=== PATIENT | male | born 1955 | race Caucasian/White ===

== ENCOUNTER 2016-03-22 | Emergency (ER) | payer BC | END 2016-03-22 03:10 | disposition home or self-care (01) ==

== ENCOUNTER 2016-05-28 06:14 | Day surgery (SDC) | payer BC ==
[2016-05-28] MEDS ORDERED: LACTATED RINGERS 1,000 ML IV ONE (07:00)
[2016-05-28] MEDS ORDERED: fentaNYL 250 MCG/5 ML VIAL IVP ONE (08:00)
[2016-05-28] MEDS ORDERED: MIDAZOLAM 2 MG/2 ML VIAL IVP ONE (08:00)
== END 2016-05-28 06:15 | disposition home or self-care (01) ==
PROC: 0DBL8ZX Excision of Transverse Colon, Via Natural or Artificial Opening Endoscopic, Diagnostic (ICD-10-PCS; 2016-05-28)
PROC: 0DBL8ZX Excision of Transverse Colon, Via Natural or Artificial Opening Endoscopic, Diagnostic (ICD-10-PCS; 2016-05-28)
PROC: 0DBN8ZX Excision of Sigmoid Colon, Via Natural or Artificial Opening Endoscopic, Diagnostic (ICD-10-PCS; principal; 2016-05-28 07:30)
DX: Z12.11 Encounter for screening for malignant neoplasm of colon (principal); D12.3 Benign neoplasm of transverse colon; D12.5 Benign neoplasm of sigmoid colon; D12.2 Benign neoplasm of ascending colon; I10 Essential (primary) hypertension
CPT/HCPCS: 45380; 45385; J3010; J7120

== ENCOUNTER 2019-09-22 10:50 | Day surgery (SDC) | payer BC ==
[2019-09-22] MEDS ORDERED: PROPOFOL 200 MG/20 ML VIAL IVP ONE (10:51)
[2019-09-22] MEDS ORDERED: fentaNYL 250 MCG/5 ML VIAL IVP ONE (10:51)
[2019-09-22] MEDS ORDERED: MIDAZOLAM 2 MG/2 ML VIAL IVP ONE (10:51)
[2019-09-22] MEDS ORDERED: LACTATED RINGERS 1,000 ML IV ONE ×2 (11:06→13:31)
[2019-09-22] MEDS ORDERED: LIDO GARGLE 30 ML BOTTLE ONE (12:36)
[2019-09-22] MEDS ORDERED: LIDO GARGLE 30 ML BOTTLE PO ONE (12:45)
[2019-09-22] MEDS ORDERED: BENZOCAINE/TETRACAINE/BUTAMBEN 20 GM TOP ONE (12:46)
--- NOTE | 2019-09-22 14:39 | ANESTHESIA ---
Pre-Anesthesia VS, & Labs - Diagnosis History of colon polyps, GERD - Procedure colonoscopy Vital Signs: Temp Pulse Resp BP Pulse Ox 36.4 C L 65 14 108/53 L 95 09/22/19 14:33 09/22/19 14:33 09/22/19 14:33 09/22/19 14:33 09/22/19 14:33 Height 5 ft 10 in Weight (kg) 94.8 kg - NPO >8 hours Home Medications and Allergies Home Medications: Ambulatory Orders FLUoxetine [PROzac] 20 mg PO DAILY 09/21/19 amLODIPine [Norvasc] 10 mg PO DAILY 10/05/14 Bisoprolol/Hydrochlorothiazide [Bisoprolol-Hctz 10-6.25 mg Tab] 1 each PO DAILY 03/22/16 FLUoxetine [PROzac] 20 mg PO DAILY 09/21/19 Allergies/Adverse Reactions: Allergies Allergy/AdvReac Type Severity Reaction Status Date / Time CHUY Inhibitors Allergy Unknown Verified 09/22/19 11:20 sulfite Allergy Rash Verified 09/22/19 11:20 Anes History & Medical History - Medical History Cardiovascular: reports: Hypertension Pulmonary: reports: None Gastrointestinal: reports: GERD, Colon polyps, Diverticulitis Urinary: reports: Benign prostate hypertrophy Musculoskeletal: reports: None, Osteoarthritis Endocrine/Autoimmune: reports: None Skin: reports: None Smoking Status: Never smoker - Surgical History General: Colonoscopy Exam Other Exam Comments:: Exam deferred. Patient sedated prior to my arrival Plan Anesthesia Type: MAC (Failed nurse sedation after 12mg Versed and 250mcg fentanyl. History obtained from chart and RN. Unable to obtain anesthesia consent, but consent inferred.) Consent for Procedure(s) Verified and Reviewed: Yes Code Status: Attempt Resuscitation ASA classification: 2-Mild systemic disease Is this case an emergency?: No
[2019-09-22 15:18] VITALS: BP 126/70
== END 2019-09-22 10:51 | disposition home or self-care (01) ==
LOC: SDS 10:50
PROVIDERS: ATTEND Surgery
PROC: 0DB38ZX Excision of Lower Esophagus, Via Natural or Artificial Opening Endoscopic, Diagnostic (ICD-10-PCS; 2019-09-22)
PROC: 0DB68ZX Excision of Stomach, Via Natural or Artificial Opening Endoscopic, Diagnostic (ICD-10-PCS; 2019-09-22)
PROC: 0DBK8ZX Excision of Ascending Colon, Via Natural or Artificial Opening Endoscopic, Diagnostic (ICD-10-PCS; principal; 2019-09-22 12:00)
PROC: 0DBL8ZX Excision of Transverse Colon, Via Natural or Artificial Opening Endoscopic, Diagnostic (ICD-10-PCS; 2019-09-22 12:00)
DX: Z12.11 Encounter for screening for malignant neoplasm of colon (principal); D12.2 Benign neoplasm of ascending colon; D12.3 Benign neoplasm of transverse colon; K21.0 Gastro-esophageal reflux disease with esophagitis; K22.10 Ulcer of esophagus without bleeding; K31.7 Polyp of stomach and duodenum; K44.9 Diaphragmatic hernia without obstruction or gangrene; Z79.899 Other long term (current) drug therapy; Z80.0 Family history of malignant neoplasm of digestive organs; Z86.010 Personal history of colon polyps
CPT/HCPCS: 43239; 45380; 45385; A9270; J3010; J7120

== ENCOUNTER 2019-10-11 10:45 | Outpatient (CLI) | payer BC ==
[2019-10-11 11:09] LABS: BASOPHILS % (AUTO) 0.6 %; EOSINOPHILS # (AUTO) 0.1 10^3/uL (0.0-0.7); EOSINOPHILS % (AUTO) 1.7 %; HGB - HEMOGLOBIN 13.7 g/dL (14.0-18.0); LYMPHOCYTES # (AUTO) 1.5 10^3/uL (1.5-3.5); LYMPHOCYTES % (AUTO) 20.6 %; MEAN CORPUSCULAR HEMOGLOBIN 31.3 pg (27.0-31.0); MEAN CORPUSCULAR HGB CONC 34.3 g/dL (32.0-36.0); MEAN CORPUSCULAR VOLUME 91.1 fL (80.0-94.0); MEAN PLATELET VOLUME 9.8 fL (7.4-11.4); MONOCYTES # (AUTO) 0.6 10^3/uL (0.0-1.0); MONOCYTES % (AUTO) 8.4 %; NEUTROPHILS % (AUTO) 68.3 %; PLT - PLATELET COUNT 286 10^3/uL (130-450); RED BLOOD COUNT 4.38 10^6/uL (4.70-6.10); RED CELL DISTRIBUTION WIDTH 12.6 % (12.0-15.0); WHITE BLOOD COUNT 7.3 x10^3/uL (4.8-10.8)
[2019-10-11 11:28] LABS: ALKALINE PHOSPHATASE 60 IU/L (42-121); ALT ALANINE AMINOTRANSFERASE 23 IU/L (10-60); AST ASPARTATE AMINOTRANSFERASE 24 IU/L (10-42); BILIRUBIN,TOTAL 0.7 mg/dL (0.2-1.0); BUN - BLOOD UREA NITROGEN 35 mg/dL (6-20); CALCIUM 9.5 mg/dL (8.5-10.3); CARBON DIOXIDE - CO2 29 mmol/L (21-32); CHLORIDE 99 mmol/L (101-111); CHOLESTEROL 186 mg/dL; CREATININE 1.1 mg/dL (0.6-1.2); GLUCOSE 95 mg/dL (70-100); HDL CHOLESTEROL 37 mg/dL; LDL CHOLESTEROL,CALCULATED 119 mg/dL; LDL/HDL RATIO 3.2 (<3.6); SODIUM 140 mmol/L (135-145); TOTAL PROTEIN 8.1 g/dL (6.7-8.2); VLDL CHOLESTEROL 30 mg/dL
[2019-10-11 11:44] LABS: PSA FREE 0.36 ng/mL (0.16-2.81)
[2019-10-11 11:45] LABS: PSA TOTAL 1.92 ng/mL (0.000-2.000)
[2019-10-12 15:43] LABS: HEPATITIS C ANTIBODY NON-REACTIVE (NON-REACTIVE)
== END 2019-10-11 10:46 | disposition home or self-care (01) ==
LOC: LAB 10:45
PROVIDERS: ATTEND Internal Medicine
DX: Z79.899 Other long term (current) drug therapy (principal); Z13.6 Encounter for screening for cardiovascular disorders; I10 Essential (primary) hypertension; F32.9 Major depressive disorder, single episode, unspecified; R35.0 Frequency of micturition; Z11.59 Encounter for screening for other viral diseases
CPT/HCPCS: 36415; 80053; 80061; 83721; 84153; 84154; 85025; 86803

== ENCOUNTER 2019-12-04 17:14 | Outpatient (CLI) | payer BC ==
--- NOTE | 2019-12-05 09:35 | XRAY Report ---
PROCEDURE: Foot 3 View LT INDICATIONS: PAIN IN LEFT FOOT TECHNIQUE: 3 views of the foot were acquired. COMPARISON: None FINDINGS: Bones: No fractures or dislocations. No suspicious bony lesions. Soft tissues: No tibiotalar joint effusion. Achilles tendon appears normal. IMPRESSION: No trauma found. There is arthritic change at the inner phalangeal joints across the foot, but no ero sive arthritis is suspected. Reviewed by: Valdez Herr MD on 12/05/2019 9:34 AM PDT Approved by: Valdez Herr MD on 12/05/2019 9:34 AM PDT Station ID: [id number]
== END 2019-12-04 17:15 | disposition home or self-care (01) ==
LOC: DI.S 17:14
PROVIDERS: ATTEND Nurse Practitioner Family
DX: M19.072 Primary osteoarthritis, left ankle and foot (principal)

== ENCOUNTER 2020-01-17 08:09 | Outpatient (CLI) | payer BC ==
--- NOTE | 2020-01-17 13:36 | MRI Report ---
PROCEDURE: Foot LT W/O INDICATIONS: LT FOOT PAIN TECHNIQUE: Noncontrast sagittal T1 spin echo and T2 fast spin echo with fat saturation, long-axis T1 spin echo a nd T2 fast spin echo with fat saturation, short-axis proton density fast spin echo and T2 fast spin e cho with fat saturation through the forefoot. COMPARISON: None. FINDINGS: Image quality: Excellent. Bones and joints: No bone marrow contusions or fractures. No evidence of metatarsal stress reaction or stress fractures. There is mild midfoot degeneration with a few scattered foci of subchondral amara ma along the tarsometatarsal joints. The sesamoid bones appear in expected positions, without interna l edema. There is mild first metatarsophalangeal joint degeneration. No intraosseous lesions. Soft tissues: A cutaneous marker is demonstrated along the dorsal aspect of the forefoot overlying t he distal second and third metatarsal shafts. No discrete subjacent mass or fluid collection is ident ified. The visualized plantar foot muscles demonstrate normal signal and bulk. Visualized flexor and extensor tendons appear intact, without tenosynovitis. There is a small amount of intermetatarsal b ursal fluid in the first and third metatarsal interspaces as well as trace fluid in the second and fo urth interspaces. Within the plantar aspect of the forefoot, there is a small subcutaneous T2 hyperin tense oval lesion measuring approximately 0.4 x 0.4 x 0.8 cm between the second and third proximal ph alanges. IMPRESSION: 1. No fractures or bone contusions. No evidence of stress reaction or stress fractures. 2. No definite abnormality identified subjacent to the cutaneous marker in the area of clinical armando rn. 3. Small subcutaneous cystic appearing lesion within the plantar soft tissues between the second and third proximal phalanges. The findings are nonspecific and the differential includes a small ganglion cyst, fat necrosis or other nonspecific inflammatory process, or foreign body reaction among other e tiologies. Differential also includes a small neoplasm but this is considered less likely. Recommenda tion correlation with clinical exam. 4. Small amount of intermetatarsal bursal fluid within the metatarsal interspaces as described. 5. Mild midfoot degeneration and mild degeneration at the first metatarsophalangeal joint. Reviewed by: Marques Fischer MD on 01/17/2020 1:35 PM PST Approved by: Marques Fischer MD on 01/17/2020 1:35 PM PST Station ID: [id number]
== END 2020-01-17 08:10 | disposition home or self-care (01) ==
LOC: DI 08:09
PROVIDERS: ATTEND Nurse Practitioner Family
DX: R93.6 Abnormal findings on diagnostic imaging of limbs (principal); R93.89 Abnormal findings on diagnostic imaging of other specified body structures

== ENCOUNTER 2020-03-03 09:00 | Emergency (ER) | payer BC ==
[2020-03-03] MEDS ORDERED: KETOROLAC 30 MG/ML VIAL IM STA (09:27)
[2020-03-03] MEDS ORDERED: methocarbamoL 500 MG TABLET PO STA ×2 (09:27→09:35)
--- NOTE | 2020-03-03 10:02 | XRAY Report ---
PROCEDURE: Hip w/Pelvis 2-3V LT INDICATIONS: hip pain TECHNIQUE: AP pelvis with lateral view(s) of the left hip(s). COMPARISON: None. FINDINGS: Bones: No fractures or dislocations. Pelvic ring appears intact. No suspicious bony lesions. There is moderate superior joint space narrowing seen involving both hips. There is associated remode ling change, with subchondral sclerosis and osteophyte formation. Note is made of age-appropriate degenerative change of the lower lumbar spine. Soft tissues: The visualized bowel gas pattern is normal. No suspicious soft tissue calcifications. IMPRESSION: Moderate degenerative change can be seen of both hips, without an acute abnormality seen by plain alvina m. Reviewed by: Kobe Trejo MD on 03/03/2020 9:01 AM [place] Approved by: Kobe Trejo MD on 03/03/2020 9:01 AM [facility] [[email or web address]] Station ID: [id number]
--- NOTE | 2020-03-03 10:37 | ED Physician Documentation ---
PD HPI LOWER EXT INJURY - Stated complaint Stated Complaint: L LEG PX - Chief complaint Chief Complaint: Ext Problem - History obtained from History obtained from: Patient - Additional information Additional information: 64-year-old man presents with left posterior thigh pain for the past day, worse with walking, moderate severity, worse with range of motion, radiating to the posterior hip. Denies traumatic injury, however he has been lifting a lot of firewood recently and has been more active than usual. Denies fevers, prior injury, weakness or numbness in the toes. Review of Systems Skin: denies: Lesions, Abrasion (s) Musculoskeletal: reports: Extremity pain, Joint pain. denies: Extremity swelling Neurologic: denies: Focal weakness, Numbness PD PAST MEDICAL HISTORY - Past Medical History Past Medical History: Yes Cardiovascular: Hypertension Respiratory: None Endocrine/Autoimmune: None GI: GERD, Colon polyps, Diverticulitis : Benign prostate hypertrophy HEENT: Chronic hearing loss Psych: None Musculoskeletal: None, Osteoarthritis Derm: None - Past Surgical History Past Surgical History: Yes General: Colonoscopy - Present Medications Home Medications: Ambulatory Orders Medication Instructions Recorded Confirmed amLODIPine [Norvasc] 10 mg PO DAILY 10/05/14 03/03/20 Bisoprolol/Hydrochlorothiazide 1 each PO DAILY 03/22/16 03/03/20 [Bisoprolol-Hctz 10-6.25 mg Tab] FLUoxetine [PROzac] 20 mg PO DAILY 09/21/19 03/03/20 Methocarbamol [Robaxin-750] 750 mg PO Q8H PRN 2 Days #6 tablet 03/03/20 - Allergies Allergies/Adverse Reactions: Allergies Allergy/AdvReac Type Severity Reaction Status Date / Time CHUY Inhibitors Allergy Unknown Verified 03/03/20 09:09 sulfite Allergy Rash Verified 03/03/20 09:09 - Social History Does the pt smoke?: No Smoking Status: Never smoker Does the pt drink ETOH?: Yes Does the pt have substance abuse?: No - Immunizations Immunizations are current?: Yes - POLST Patient has POLST: No PD ED PE NORMAL - Vitals Vital signs reviewed: Yes - General General: Alert and oriented X 3 - HEENT HEENT: Atraumatic, PERRL, EOMI - Extremities Extremities: No deformity, No tenderness to palpate, Other (mildly tender with flexion at the hip. ttp of posterior proximal thigh in muscular distribution) - Neuro Neuro: Other (Sensory, neuro, vascular intact bilateral lower extremities) Results - Vitals Vitals: Vital Signs - 24 hr 03/03/20 03/03/20 09:06 09:25 Temperature 36.0 C L Heart Rate 69 69 Respiratory 16 16 Rate Blood Pressure 142/89 H 146/98 H O2 Saturation 97 96 Oxygen O2 Source Room air PD MEDICAL DECISION MAKING - ED course Complexity details: re-evaluated patient ED course: 64-year-old man presented with muscle strain to left posterior hip. X-rays show mild osteoarthritis. Discussed with patient. He has had improvement with Toradol and Robaxin. We will send a couple prescriptions of Robaxin and he will take ibuprofen outpatient. Strict return precautions given. Patient will follow up with his primary doctor. Departure - Departure Disposition: 01 Home, Self Care Clinical Impression: Muscle strain Condition: Good Instructions: ED RICE, Strain Sprain Contusion Ch Prescriptions: Methocarbamol [Robaxin-750] 750 mg PO Q8H PRN 2 Days #6 tablet PRN Reason: Pain Comments: You have been seen in the emergency department for muscle strain. Return to the ED for any new or worsening symptoms. Follow-up with your primary doctor. Robaxin can make you drowsy so you should exercise caution when operating heavy machinery or driving.
[2020-03-03 10:53] VITALS: BP 144/89
== END 2020-03-03 10:57 | disposition home or self-care (01) ==
LOC: ED 09:00
DX: S76.012A Strain of muscle, fascia and tendon of left hip, initial encounter (principal); X50.0XXA Overexertion from strenuous movement or load, initial encounter; Y93.89 Activity, other specified; Y92.009 Unspecified place in unspecified non-institutional (private) residence as the place of occurrence of the external cause; M16.0 Bilateral primary osteoarthritis of hip; I10 Essential (primary) hypertension
CPT/HCPCS: 73502; 96372; 99283; A9270

== ENCOUNTER 2021-04-30 08:41 | Outpatient (CLI) | payer MEDICARE, BC | END 2021-04-30 08:42 | disposition home or self-care (01) | LOC: DI 08:41 | PROVIDERS: ATTEND Internal Medicine | DX: R01.1 Cardiac murmur, unspecified (principal); I51.7 Cardiomegaly; I35.0 Nonrheumatic aortic (valve) stenosis | CPT/HCPCS: 93306 ==

== ENCOUNTER 2021-08-22 08:00 | Outpatient (CLI) | payer MEDICARE, BC ==
--- NOTE | 2021-08-22 14:20 | XRAY Report ---
PROCEDURE: Wrist 3 View RT INDICATIONS: RIGHT WRIST PAIN TECHNIQUE: 4 views of the wrist were acquired. COMPARISON: None FINDINGS: Bones: No fractures or dislocations. No suspicious bony lesions. Scaphoid view: Negative Soft tissues: No suspicious soft tissue calcifications. IMPRESSION: No acute fracture. No osseous lesion. If symptoms and/or clinical suspicion for pathology continue, f urther assessment with repeat plain films, or advanced imaging (e.g., CT, MRI, or bone scan) is recom mended for further assessment. Reviewed by: Haroldo Luna MD on 08/22/2021 2:18 PM PDT Approved by: Haroldo Luna MD on 08/22/2021 2:18 PM PDT Station ID: [id number]
== END 2021-08-22 23:59 | disposition home or self-care (01) ==
LOC: DI.S 08:00
PROVIDERS: ATTEND Emergency Medicine
DX: M25.531 Pain in right wrist (principal)

== ENCOUNTER 2022-02-16 08:25 | Outpatient (CLI) | payer MEDICARE, BC ==
--- NOTE | 2022-02-16 13:33 | Ultrasound Report ---
PROCEDURE: Bladder INDICATIONS: BENIGN PROSTATIC HYPERPLASIA WITH OUTFLOW OBS TECHNIQUE: Real-time scanning was performed of the bladder and prostate, with image documentation. COMPARISON: None FINDINGS: Bladder: Pre-void bladder volume is 151.67 mL. Post-void residual is 10.4 mL. Pre-void images demo nstrate no intraluminal masses or stones. On pre-void images, bilateral ureteral jets are noted with color Doppler interrogation. (Of note, ureteral jets may not be detectable in up to 25% of cases du e to insufficient differences in specific gravity between ureteral and bladder urine). Miscellaneous: No free pelvic fluid. Prostate gland measures 4.4 x 4.3 x 3.5 cm. IMPRESSION: Unremarkable sonographic evaluation of the urinary bladder and prostate gland. Reviewed by: Alberto Walden MD on 02/16/2022 1:32 PM PST Approved by: Alberto Walden MD on 02/16/2022 1:32 PM PST Station ID: [id number]
== END 2022-02-16 08:26 | disposition home or self-care (01) ==
LOC: DI 08:25
PROVIDERS: ATTEND Internal Medicine
DX: N40.1 Benign prostatic hyperplasia with lower urinary tract symptoms (principal); N13.8 Other obstructive and reflux uropathy

== ENCOUNTER 2024-03-04 12:20 | Inpatient (IN) ==
[2024-03-04] MEDS: predniSONE 20 MG TABLET PO STA (13:48)
[2024-03-04] MEDS: BENZONATATE 100 MG CAPSULE PO STA (13:48)
--- NOTE | 2024-03-04 13:53 | ED Physician Documentation ---
History of Present Illness Stated complaint Stated Complaint: chest px/soa Chief complaint Chief Complaint: Resp History obtained from History obtained from: Patient History of Present Illness Pain level max: 0 Pain level now: 0 Additonal information Additional information: Patient is a 68-year-old male who has had increasing shortness of breath over the past few months since returning from a cruise to [place]. Has been seen by his PCP several times. He states he does not have any history of lung issues. He states he has not had any x-rays performed. Has had cough, has been trying to use an albuterol inhaler without relief. Does not use a spacer. He is accompanied by his today. Does not use oxygen at home. Has had wheezing. States is difficult to sleep at night because it is difficult to breathe. Has had possible mild swelling in the bilateral lower extremities. Meds/Allgy Home Medications Ambulatory Orders Medication Instructions Recorded Confirmed amlodipine 10 mg tablet 10 mg PO DAILY 03/05/24 03/05/24 bisoprolol 5 1 tab PO DAILY 03/05/24 03/05/24 mg-hydrochlorothiazide 6.25 mg tablet fluoxetine 20 mg capsule 20 mg PO DAILY 03/05/24 03/05/24 Allergies Allergies Allergy/AdvReac Type Severity Reaction Status Date / Time CHUY Inhibitors Allergy Unknown Verified 03/04/24 12:38 sulfite Allergy Rash Verified 03/04/24 12:38 [facility] Social History Social History Smoking Status: Never smoker Second hand tobacco smoke exposure: No Do you dip or chew tobacco?: No Do you vape?: No Level: Independent Do you feel safe in your home environment?: Yes Suffered physical, verbal, emotional, or financial abuse?: No History of Abuse: No Frequency: Occasional POLST Patient has POLST: No Exam Constitutional normal general appearance and no apparent distress HENMT oropharynx normal moist mucous membranes Eyes PERRL Neck/C-Spine visual inspection normal Respiratory Diminished breath sounds bilaterally, wheezing bilaterally. Increased work of breathing. Cardiovascular normal heart rate noted and regular rhythm noted Gastrointestinal abdomen normal to inspection, abdomen soft to palpation, nontender to palpation and nondistended Genitourinary no CVA tenderness Extremities 1+ bilateral lower extremity edema Neurology speech normal Psychiatry mental status grossly normal and oriented x3 Skin skin color normal Results Vitals Vitals: Oxygen O2 Source Nasal cannula EKG (time done) 1540: EKG releavant findings:: EKG personally interpreted by author of this note. Relevant findings are: Rate: Other Labs Labs: Laboratory Tests 03/04/24 03/04/24 13:54 15:38 WBC 14.5 H RBC 4.37 L Hgb 12.3 L Hct 37.9 L MCV 86.7 MCH 28.1 MCHC 32.5 RDW 14.9 Plt Count 290 MPV 10.3 Neut # (Auto) 12.3 H Lymph # (Auto) 0.9 L [place] # (Auto) 1.2 H Eos # (Auto) 0.0 Baso # (Auto) 0.0 Absolute Nucleated RBC 0.03 Nucleated RBC % 0.2 Sodium 135 Potassium 4.3 Chloride 100 L Carbon Dioxide 22 Anion Gap 13.0 BUN 76 H Creatinine 1.8 H Estimated GFR (MDRD) 38 L Glucose 95 Calcium 9.4 Troponin I High Sens 165.1 H* B-Natriuretic Peptide 3372 H Procalcitonin Immunoas 0.49 Nasal Adenovirus (PCR) NOT DETECTED Nasal B. parapertussis DNA (PCR) NOT DETECTED Nasal Coronavir 229E PCR NOT DETECTED Nasal Coronavir HKU1 PCR NOT DETECTED Nasal Coronavir NL63 PCR NOT DETECTED Nasal Coronavir OC43 PCR NOT DETECTED Nasal Enterovir/Rhinovir PCR NOT DETECTED Nasal Influenza B PCR NOT DETECTED Nasal Influenza A PCR NOT DETECTED Nasal Parainfluen 1 PCR NOT DETECTED Nasal Parainfluen 2 PCR NOT DETECTED Nasal Parainfluen 3 PCR NOT DETECTED Nasal Parainfluen 4 PCR NOT DETECTED Nasal RSV (PCR) NOT DETECTED Nasal B.pertussis DNA PCR NOT DETECTED Nasal C.pneumoniae (PCR) NOT DETECTED [place] Human Metapneumo PCR NOT DETECTED Nasal M.pneumoniae (PCR) NOT DETECTED Nasal SARS-CoV-2 (PCR) NOT DETECTED PD Medical Decision Making ED course Complexity details: reviewed results, re-evaluated patient, considered di fferential, d/w patient, d/w family and d/w vocational rehab consultant ED course: Patient is a 68-year-old male who presents to the emergency department complaining of increasing shortness of breath over the past several months. Chest x-ray appears consistent with congestive heart failure. Does not have history of same. BNP is significantly elevated over 3000. Mild troponin elevation. Does not have any chest pain, suspect that the troponin elevation is secondary to the heart failure. We will start on Lasix and admit the patient for further care. Discussed the case with the hospitalist who accepts. This document was made in part using voice recognition software. While efforts are made to proofread this document, sound alike and grammatical errors may occur. Discharge Plan Discharge Patient Disposition: 66 [facility] DC/Xfer Condition: Stable Clinical Impression: Hypoxia, Congestive heart failure Pulmonary edema Qualifiers: Chronicity: acute Qualified Code(s): J81.0 - Acute pulmonary edema Interventions: ED Admission Assessment Last Done: 03/04/24 17:49
[2024-03-04 13:58] LABS: BASOPHILS % (AUTO) 0.3 %; EOSINOPHILS % (AUTO) 0.1 %; HCT - HEMATOCRIT 37.9 % (42.0-52.0); HGB - HEMOGLOBIN 12.3 g/dL (14.0-18.0); LYMPHOCYTES # (AUTO) 0.9 10^3/uL (1.5-3.5); LYMPHOCYTES % (AUTO) 6.4 %; MEAN CORPUSCULAR HEMOGLOBIN 28.1 pg (27.0-31.0); MEAN CORPUSCULAR HGB CONC 32.5 g/dL (32.0-36.0); MEAN CORPUSCULAR VOLUME 86.7 fL (80.0-94.0); MEAN PLATELET VOLUME 10.3 fL (7.4-11.4); MONOCYTES # (AUTO) 1.2 10^3/uL (0.0-1.0); MONOCYTES % (AUTO) 8.1 %; NEUTROPHILS # (AUTO) 12.3 10^3/uL (1.5-6.6); NEUTROPHILS % (AUTO) 84.5 %; NRBC ABSOLUTE COUNT (AUTO) 0.03 x10^3/uL; NUCLEATED RED BLOOD CELLS AUTO 0.2 /100WBC; PLT - PLATELET COUNT 290 10^3/uL (130-450); RED BLOOD COUNT 4.37 10^6/uL (4.70-6.10); RED CELL DISTRIBUTION WIDTH 14.9 % (12.0-15.0); WHITE BLOOD COUNT 14.5 x10^3/uL (4.8-10.8)
[2024-03-04] MEDS: IPRATROPIUM/ALBUTEROL 3 ML NEB INH STA (14:04)
[2024-03-04 14:14] LABS: CALCIUM 9.4 mg/dL (8.5-10.3); CREATININE 1.8 mg/dL (0.6-1.3); POTASSIUM 4.3 mmol/L (3.5-4.5)
--- NOTE | 2024-03-04 14:21 | XRAY Report ---
PROCEDURE: XR Chest 1V INDICATIONS: cough TECHNIQUE: One view of the chest was acquired. COMPARISON: None. FINDINGS: Surgical changes and devices: None. Lungs and pleura: Moderate to severe diffuse lung disease, with poor aeration bilaterally. Possible small effusions are present. Mediastinum: Cardiomegaly. Bones and chest wall: Degenerative changes IMPRESSION: Moderate to severe diffuse lung disease, with poor aeration bilaterally. Possible small effusions. Di fferential includes edema versus infection versus alveolar damage. Cardiomegaly. Reviewed by: Mariano Finney MD on 03/04/2024 1:19 PM [facility] Approved by: Mariano Finney MD on 03/04/2024 1:19 PM [facility] Station ID: [id number]
[2024-03-04 15:07] LABS: B. PARAPERTUSSIS- RESP PCR PAN NOT DETECTED; B. PERTUSSIS- RESP PCR PANEL NOT DETECTED; C. PNEUMONIAE- RESP PCR PANEL NOT DETECTED; CORONAVIRUS 229E-RESP PCR NOT DETECTED; CORONAVIRUS HKU1-RESP PCR NOT DETECTED; CORONAVIRUS NL63-RESP PCR NOT DETECTED; CORONAVIRUS OC43-RESP PCR NOT DETECTED; HUMAN METAPNEUMOVIRUS NOT DETECTED; INFLUENZA A- RESP PCR PANEL NOT DETECTED; INFLUENZA B - RESP PCR PANEL NOT DETECTED; M. PNEUMONIAE- RESP PCR PANEL NOT DETECTED; PARAINFLUENZA VIRUS 1 NOT DETECTED; PARAINFLUENZA VIRUS 2 NOT DETECTED; PARAINFLUENZA VIRUS 4 NOT DETECTED; RHINOVIRUS/ENTEROVIRUS NOT DETECTED; RSV- RESP PCR PANEL NOT DETECTED; SARS-CoV-2 -RESP PCR PANEL NOT DETECTED
[2024-03-04] MEDS: FUROSEMIDE 20 MG/2 ML VIAL IVP STA (15:39)
--- NOTE | 2024-03-04 15:46 | HISTORY & PHYSICAL EXAMINATION ---
Chief Complaint Chief Complaint Chief Complaint: Difficulty in breathing History of Present Illness Admitted From Admitted From:: Home History Obtained From Records Reviewed: Yes History obtained from: Patient, patient's at bedside Exam Limitations: conversational dyspnea History of Present Illness HPI Comment/Other: Patient is a 68-year-old male with a history of hypertension who presents after worsening shortness of breath over the last 2 months. His is at bedside who helps with history as patient is having conversational dyspnea. Per patient and , they went on a cruise, and return on January 02. Since then, he has had persistent shortness of breath. Initially, they did go to the primary care provider who prescribed a inhaler and cough syrup. Initially, this did help out a little bit, however over the last week and a half it worsened. On , they went back to the urgent care, and they recommended he do a stress test, which they scheduled for the following week. Currently, he continues to have shortness of breath. He states it is much improved while in the emergency room than it was at home. However, he is continuing to gasp for air, and having conversational dyspnea. The shortness of breath does worsen when he does activity or lies flat. He states that at home, he was having some occasional chest pain with radiation to the left and right arms. However, currently he is not having any. He does state that he is having some difficulty with ambulation due to the shortness of breath, so he has been minimally active at home. He denies any fevers or chills. He does have a cough with some clear sputum production. His nor anybody around him has had any similar symptoms. He states his diet has been poor, and he has not been eating much or drinking much at home. He has no history of any lung problems, has never smoked tobacco, has never lived in a smoking household, or has never been diagnosed with any asthma. He has no history of heart problems, but does state that it runs in the family. In the ED, patient was hypotensive with blood pressure in the 90s over 50s, he was saturating 89% on room air, he was breathing 30 to 35 breaths/min. He was afebrile, and his heart rate was within normal limits. He had a leukocytosis of 14.5, his hemoglobin was 12.3, his creatinine was 1.8, which is up from his baseline of 0.8-1.1. His proBNP was elevated at 3372. His respiratory viral panel was negative. A CTA remains pending, as does the troponin, EKG, proBNP. Meds/Allgy Home Medications Ambulatory Orders Medication Instructions Recorded Confirmed amlodipine 5 mg tablet 10 mg PO DAILY 10/05/14 03/03/20 bisoprolol 10 1 ea PO DAILY 03/22/16 03/03/20 mg-hydrochlorothiazide 6.25 mg tablet fluoxetine 10 mg capsule 20 mg PO DAILY 09/21/19 03/03/20 methocarbamol 750 mg tablet 750 mg PO Q8H PRN Pain 2 days #6 03/03/20 (Robaxin-750) tabs Allergies Allergies Allergy/AdvReac Type Severity Reaction Status Date / Time CHUY Inhibitors Allergy Unknown Verified 03/04/24 12:38 sulfite Allergy Rash Verified 03/04/24 12:38 PFSH Social History Social History Smoking Status: Never smoker Do you dip or chew tobacco?: No Do you feel safe in your home environment?: Yes Suffered physical, verbal, emotional, or financial abuse?: No History of Abuse: No Frequency: Occasional POLST Patient has POLST: No POLST Status: Full Code Review of Systems Constitutional Reports: Fatigue and Malaise; Denies: Fever, Chills, Weakness, Diaphoresis, Night sweats or Changes in appetite or eating habits Eyes Denies: Pain, Irritation, Amaurosis or Blurry vision Ears, nose, mouth, and throat Denies: Ear pain, Ear discharge, Hearing loss, Neck pain or Throat swelling Cardiovascular Reports: edema, swelling of feet/ankles, shortness of breath with exertion, shortness of breath when lying down and Decreased exercise tolerance; Denies: Irregular heart rate, chest pain, palpitations, Syncope or lightheadedness Respiratory Reports: Shortness of breath, Cough, Wheezing, SOB at rest and SOB with exertion; Denies: Sputum production, Change in phlegm color, Apnea, Snoring, Stridor, Pleuritic pain or Coughing up blood Gastrointestinal Reports: Poor appetite; Denies: Abdominal pain, Abdominal distention, Nausea or Vomiting Genitourinary Denies: Painful urination, Flank pain, Incontinence, Urinary frequency, Urinary urgency or Nocturia Musculoskeletal Denies: Back pain, Neck pain, Extremity pain or Extremity swelling Integumentary/Breast Denies: Rash, Itching, Dryness, Redness or Skin pain Neurological Denies: Headache, General weakness, Focal weakness, Weakness in extremities or Numbness in extremities Psychiatric Denies: Depression, Anxiety, Mood swings, Panic attacks, Change in sleep pattern or Hopelessness Endocrine Reports: Fatigue; Denies: Excessive urination, Excessive thirst or Polyphagia Hematologic/Lymphatic Denies: Anemia, Easy bruising, Petechiae or Easy bleeding Allergic/Immunologic Reports: Wheezing; Denies: Hives, Throat swelling or Tongue swelling Prior Level of Functionality: Fully independent. Exam Constitutional normal general appearance, distress noted (moderate) and (respiratory), limitations noted (physical limitations) (conversational dyspnea) and alert HENMT normocephalic and head/scalp atraumatic Eyes PERRL, EOMs intact bilaterally and conjunctivae normal Neck/C-Spine visual inspection normal and trachea midline Lymph no lymphedema noted Chest inspection of chest normal and palpation of chest normal Respiratory breath sounds equal bilaterally, abnormal respiratory effort (shallow breathing), (pursed lip breathing) and (labored), auscultation abnormal and rales noted (diffuse crackles throughout all lung suazo ) Cardiovascular normal heart rate noted, regular rhythm noted, no gallop, no rub and no murmur Gastrointestinal abdomen normal to inspection, abdomen soft to palpation and nondistended Genitourinary no CVA tenderness and external appearance normal Extremities normal to inspection, normal to palpation, no tenderness and full ROM Neurology no movement abnormality noted, no focal motor deficit noted, no sensory deficits noted and speech normal Psychiatry mental status grossly normal, oriented x3, thought process normal, cooperative and affect normal Skin skin color normal, no rash and no lesions Conclusion/Plan Problem List (1) Acute hypoxic respiratory failure: Plan: Patient and his went on a cruise, returned January 02. He has had progressive shortness of breath since. Worse when lying flat, worse with exertion. Occasional chest pain, but none right now. No history of pulmonary or heart issues in the past. No fevers or chills. Mild cough with clear sputum production. proBNP elevated to 3000. Chest x-ray shows diffuse pulmonary infiltrates, cardiomegaly. Last echo was this time, it showed EF of 55 to 60% indeterminate diastolic function, mild aortic stenosis. CTA ordered, pending. Continue IV Lasix 40 mg twice daily. Echo ordered, pending. Explained that this may not get done until Wednesday morning. Patient and his demonstrate understanding. Procalcitonin ordered to see if there is an underlying infectious process also occurring. Will hold off on antibiotics at this time. (2) Pulmonary edema: Plan: Patient has diffuse infiltrates. Continue IV Lasix 40 mg twice daily as stated above. Continue to wean down oxygen. Continue to monitor strict ins and outs. Qualifiers: Chronicity: acute Qualified Code(s): J81.0 - Acute pulmonary edema (3) Elevated troponin: Plan: Patient with no active chest pain at this time. Troponin is elevated likely due to demand ischemia in setting of above. EKG shows a right bundle carlos block, with no previous EKGs to compare. There are no obvious ST elevations or depressions or any reciprocal changes. (4) Leukocytosis: Plan: Afebrile, cough with clear sputum production. Procalcitonin ordered, pending. Continue monitor off antibiotics. Qualifiers: Leukocytosis type: unspecified Qualified Code(s): D72.829 - Elevated white blood cell count, unspecified (5) Acute kidney injury: Plan: Creatinine elevated; possibly component of cardiorenal syndrome but this is new onset congestive heart failure. Continue 40 mg Lasix IV twice daily. Continue to trend creatinine. (6) Hypertension: Plan: Hold antihypertensives at this time as patient is borderline low blood pressure. Qualifiers: Hypertension type: unspecified Qualified Code(s): I10 - Essential (primary) hypertension Lab Results Lab results reviewed: Yes 03/04/24 13:54 03/04/24 13:54 Diagnostic Imaging Results Diagnostic Imaging Results: positive Final report reviewed Core Measures Anticipated LOS I expect patient to be DC'd or transferred within 96 hours.: Yes DVT/VTE - Prophylaxis VTE/DVT Device ordered at admit?: Yes VTE/DVT Prophylaxis med ordered at admit?: Yes Stroke - Rehab Assessment Rehab services assessment to be ordered?: No AMI - Statin at Admit Aspirin Prescribed on Admit: No Not Ordered - Medical Reason: Not indicated
[2024-03-04] MEDS: FUROSEMIDE 40 MG/4 ML VIAL IVP STA (15:47)
[2024-03-04] MEDS ORDERED: iohexoL-300 100 ML VIAL ONE (15:56)
[2024-03-04 16:08] LABS: PROCALCITONIN 0.49 ng/mL (<0.5)
[2024-03-04 16:19] LABS: TROPONIN I HIGH SENSITIVITY 165.1 ng/L (2.3-19.7)
--- NOTE | 2024-03-04 16:51 | CT Report ---
PROCEDURE: CT Angio Chest INDICATIONS: sanna CONTRAST: omni 300 TECHNIQUE: After the administration of intravenous contrast, 2 mm axial images were acquired from the pulmonary apices to the posterior costophrenic angles during the arterial phase. In addition, 1 mm lung kernel and 5 mm soft tissue kernel reconstructions were performed. 3-dimensional coronal oblique maximum int ensity projection (MIP) reformats, 8 mm axial MIP, and 5 mm coronal and sagittal MPR reformats were t hen performed through the thorax. For radiation dose reduction, the following was used: automated exp osure control, adjustment of mA and/or kV according to patient size. COMPARISON: Same-day radiograph FINDINGS: Image quality: Motion degraded Lungs and pleura:Moderate diffuse lung disease with groundglass opacities and multifocal consolidatio ns. Small bilateral effusions. Mediastinum, heart, and esophagus: Cardiomegaly. No acute pulmonary embolism. Atherosclerotic calcifi cations. No pathologic lymph nodes by size criteria. Small hiatal hernia. Chest wall and thyroid: Unremarkable, not fully seen Upper abdomen: No gross abnormality on these limited arterial phase images Bones: There are degenerative changes. IMPRESSION: No acute pulmonary embolism. Moderate diffuse lung disease with mostly groundglass opacities and small consolidative components, l ikely edema versus infection. Small effusions are present. Consider future imaging surveillance to as sess for resolution. Cardiomegaly. Reviewed by: Mariano Finney MD on 03/04/2024 3:49 PM [facility] Approved by: Mariano Finney MD on 03/04/2024 3:49 PM [facility] Station ID: [id number]
[2024-03-04] MEDS: iohexoL-300 100 ML VIAL IVP ONE (17:10)
[2024-03-04] MEDS ORDERED: ONDANSETRON ODT 4 MG TABLET TL PRN (17:54)
[2024-03-04] MEDS ORDERED: ACETAMINOPHEN 325 MG TABLET PO PRN (17:54)
[2024-03-04] MEDS: HEPARIN 5,000 UNIT/ML VIAL SUBQ SCH (21:40)
[2024-03-05] MEDS: FUROSEMIDE 40 MG/4 ML VIAL IVP SCH (00:24)
[2024-03-05] MEDS: SODIUM CHLORIDE FLUSH 0.9% 10 ML SYRINGE IVP PRN (00:24)
[2024-03-05 04:57] LABS: HCT - HEMATOCRIT 33.9 % (42.0-52.0); HGB - HEMOGLOBIN 11.2 g/dL (14.0-18.0); MEAN CORPUSCULAR HEMOGLOBIN 28.4 pg (27.0-31.0); MEAN CORPUSCULAR VOLUME 85.8 fL (80.0-94.0); MEAN PLATELET VOLUME 10.3 fL (7.4-11.4); RED BLOOD COUNT 3.95 10^6/uL (4.70-6.10); RED CELL DISTRIBUTION WIDTH 14.7 % (12.0-15.0); WHITE BLOOD COUNT 13.9 x10^3/uL (4.8-10.8)
[2024-03-05 05:18] LABS: CALCIUM 8.3 mg/dL (8.5-10.3); CREATININE 1.7 mg/dL (0.6-1.3); MAGNESIUM 2.3 mg/dL (1.7-2.3); POTASSIUM 3.6 mmol/L (3.5-4.5)
--- NOTE | 2024-03-05 09:02 | PHARMACY PROGRESS NOTE ---
Best Possible Medication History Admit Date and Time: 03/04/24 1541 Home Medications Medication Instructions Recorded Confirmed Type amlodipine 10 mg tablet 10 mg PO DAILY 03/05/24 03/05/24 History bisoprolol 5 1 tab PO DAILY 03/05/24 03/05/24 History mg-hydrochlorothiazide 6.25 mg tablet fluoxetine 20 mg capsule 20 mg PO DAILY 03/05/24 03/05/24 History Processed by: Pharmacy Medications reviewed in ED?: No Medication History completed: Yes Patient Interview: Completed Secondary Source(s): Pharmacy records and Insurance records [facility] Statement: As the person ultimately responsible for medication therapy, providers are able to order a medication from an existing home medication list in [facility] via the "Reconcile Routine" prior to Confirmation of that medication by postal support employee. Such practice is discouraged except when the physician, in their clinical judgment, deems that a medical need exists for a medication without regard to previous use.
[2024-03-05 09:43] LABS: VBG PCO2 34.6 mmHg (41-51); VBG PO2 48.8 mmHg (25-47)
[2024-03-05 09:44] LABS: VBG BASE EXCESS -2.7 mmol/L (-2 - +2); VBG HCO3 21.2 mmol/L (23-28); VBG OXYGEN SATURATION 80.2 % (60-80); VBG PH 7.406 (7.31-7.41); VBG TOTAL CO2 22.3 mmol/L (24-29)
[2024-03-05] MEDS: FLUoxetine 10 MG CAPSULE PO SCH (09:54)
--- NOTE | 2024-03-05 11:25 | PROVIDER PROGRESS NOTE ---
Subjective Subjective Subjective: Patient is doing well from a respiratory standpoint. He does state that he occasionally had shortness of breath overnight. He says it is worse with exertion. He has had no chest pain. He has no fevers or chills. He has no cough either this morning. He has been up to urinate a lot. He understands that he has to wait till tomorrow to get his ultrasound of his heart. Current Medications Current Medications Current Medications: Current Medications Generic Name Dose Route Start Last Admin Trade Name Freq PRN Reason Stop Dose Admin Acetaminophen 650 mg 03/04/24 17:54 Acetaminophen 325 Mg Tablet PO Q4HR PRN Pain 1 to 4, or Fever Fluoxetine HCl 20 mg 03/05/24 10:00 03/05/24 09:54 Fluoxetine 10 Mg Capsule PO 20 mg DAILY ANNITA Administration Furosemide 40 mg 03/04/24 23:30 03/05/24 06:46 Furosemide 40 Mg/4 Ml Vial IVP 40 mg BIDDIURETIC ANNITA Administration Heparin Sodium (Porcine) 5,000 unit 03/04/24 21:00 03/05/24 08:17 Heparin 5,000 Unit/Ml Vial SUBQ 5,000 unit BID ANNITA Administration Multi-Ingredient Ointment 1 applic 03/05/24 02:04 Zinc Oxide 20% Oint 30 Gm Tube TOP PRN PRN Skin Care Ondansetron HCl 4 mg 03/04/24 17:54 Ondansetron Odt 4 Mg Tablet TL Q6HR PRN Nausea / Vomiting Sodium Chloride 10 ml 03/04/24 17:54 03/05/24 06:46 Sodium Chloride Flush 0.9% 10 Ml Syringe IVP 10 ml PRN PRN Administration NEEDED PER PROVIDER ORDERS Objective Vital Signs/Intake & Output Reviewed Vital Signs: Yes Vital Signs: Vital Signs x48h Temp Pulse Resp BP Pulse Ox O2 Flow Rate 03/05/24 08:58 98.1 F 62 22 99/56 L 95 3 Intake & Output: Intake & Output 03/02/24 03/03/24 03/04/24 03/05/24 23:59 23:59 23:59 23:59 Intake Total 340 / 340 Output Total 450 / 450 900 / 900 Balance -450 / -450 -560 / -560 Weight (kg) 92.5 kg 90.5 kg Objective General Appearance: positive No acute distress, Alert and Other (slow to respond, but alert and oriented x 4) Eyes Bilateral: positive Normal inspection and PERRL ENT: positive Pharynx nml, No signs of dehydration and Purulent nasal drainage Neck: positive Nml inspection, Thyroid nml and No JVD Respiratory: positive Chest non-tender and Rales (diffuse crackles noted ); negative No respiratory distress (mild respiratory distress; improved) Cardiovascular: positive Regular rate & rhythm, No murmur and No gallop; negative Systolic murmur or Diastolic murmur Abdomen: positive Non-tender and No organomegaly; negative Guarding, Hepatomegaly or Splenomegaly Back: positive Nml inspection; negative CVA tenderness (R) or CVA tenderness (L) Skin: positive Color nml, No rash and Dry Extremities: positive Non-tender, Full ROM and Pedal edema (trace) Neurologic/Psychiatric: positive Oriented x3 and Mood/affect nml Lab Results 03/05/24 04:45 03/05/24 04:45 Other Labs: Lab Results x24hrs 03/05/24 03/05/24 03/04/24 Range/Units 09:33 04:45 19:24 WBC 13.9 H (4.8-10.8) x10^3/uL RBC 3.95 L (4.70-6.10) 10^6/uL Hgb 11.2 L (14.0-18.0) g/dL Hct 33.9 L (42.0-52.0) % MCV 85.8 (80.0-94.0) fL MCH 28.4 (27.0-31.0) pg MCHC 33.0 (32.0-36.0) g/dL RDW 14.7 (12.0-15.0) % Plt Count 261 (130-450) 10^3/uL MPV 10.3 (7.4-11.4) fL Neut # (Auto) (1.5-6.6) 10^3/uL Lymph # (Auto) (1.5-3.5) 10^3/uL [place] # (Auto) (0.0-1.0) 10^3/uL Eos # (Auto) (0.0-0.7) 10^3/uL Baso # (Auto) (0.0-0.1) 10^3/uL Absolute Nucleated RBC x10^3/uL Nucleated RBC % /100WBC VBG pH 7.406 (7.31-7.41) VBG pCO2 34.6 L (41-51) mmHg VBG pO2 48.8 H (25-47) mmHg VBG HCO3 21.2 L (23-28) mmol/L VBG Total CO2 22.3 L (24-29) mmol/L VBG O2 Saturation 80.2 H (60-80) % VBG Base Excess -2.7 L (-2 - +2) mmol/L Sodium 137 (135-145) mmol/L Potassium 3.6 (3.5-4.5) mmol/L Chloride 102 (101-111) mmol/L Carbon Dioxide 23 (21-32) mmol/L Anion Gap 12.0 (6-13) BUN 78 H (6-20) mg/dL Creatinine 1.7 H (0.6-1.3) mg/dL Estimated GFR (MDRD) 40 L (>89) Glucose 106 H (74-104) mg/dL Calcium 8.3 L (8.5-10.3) mg/dL Magnesium 2.3 (1.7-2.3) mg/dL Troponin I High Sens 165.3 H* 162.3 H* (2.3-19.7) ng/L B-Natriuretic Peptide (5-100) pg/mL Procalcitonin Immunoas (<0.5) ng/mL Nasal Adenovirus (PCR) Nasal B. parapertussis DNA (PCR) Nasal Coronavir 229E PCR Nasal Coronavir HKU1 PCR Nasal Coronavir NL63 PCR Nasal Coronavir OC43 PCR Nasal Enterovir/Rhinovir PCR Nasal Influenza B PCR Nasal Influenza A PCR Nasal Parainfluen 1 PCR Nasal Parainfluen 2 PCR Nasal Parainfluen 3 PCR Nasal Parainfluen 4 PCR Nasal RSV (PCR) Nasal B.pertussis DNA PCR Nasal C.pneumoniae (PCR) [place]anda Human Metapneumo PCR Nasal M.pneumoniae (PCR) Nasal SARS-CoV-2 (PCR) 03/04/24 03/04/24 Range/Units 15:38 13:54 WBC 14.5 H (4.8-10.8) x10^3/uL RBC 4.37 L (4.70-6.10) 10^6/uL Hgb 12.3 L (14.0-18.0) g/dL Hct 37.9 L (42.0-52.0) % MCV 86.7 (80.0-94.0) fL MCH 28.1 (27.0-31.0) pg MCHC 32.5 (32.0-36.0) g/dL RDW 14.9 (12.0-15.0) % Plt Count 290 (130-450) 10^3/uL MPV 10.3 (7.4-11.4) fL Neut # (Auto) 12.3 H (1.5-6.6) 10^3/uL Lymph # (Auto) 0.9 L (1.5-3.5) 10^3/uL [place] # (Auto) 1.2 H (0.0-1.0) 10^3/uL Eos # (Auto) 0.0 (0.0-0.7) 10^3/uL Baso # (Auto) 0.0 (0.0-0.1) 10^3/uL Absolute Nucleated RBC 0.03 x10^3/uL Nucleated RBC % 0.2 /100WBC VBG pH (7.31-7.41) VBG pCO2 (41-51) mmHg VBG pO2 (25-47) mmHg VBG HCO3 (23-28) mmol/L VBG Total CO2 (24-29) mmol/L VBG O2 Saturation (60-80) % VBG Base Excess (-2 - +2) mmol/L Sodium 135 (135-145) mmol/L Potassium 4.3 (3.5-4.5) mmol/L Chloride 100 L (101-111) mmol/L Carbon Dioxide 22 (21-32) mmol/L Anion Gap 13.0 (6-13) BUN 76 H (6-20) mg/dL Creatinine 1.8 H (0.6-1.3) mg/dL Estimated GFR (MDRD) 38 L (>89) Glucose 95 (74-104) mg/dL Calcium 9.4 (8.5-10.3) mg/dL Magnesium (1.7-2.3) mg/dL Troponin I High Sens 165.1 H* (2.3-19.7) ng/L B-Natriuretic Peptide 3372 H (5-100) pg/mL Procalcitonin Immunoas 0.49 (<0.5) ng/mL Nasal Adenovirus (PCR) NOT DETECTED Nasal B. parapertussis DNA (PCR) NOT DETECTED Nasal Coronavir 229E PCR NOT DETECTED Nasal Coronavir HKU1 PCR NOT DETECTED Nasal Coronavir NL63 PCR NOT DETECTED Nasal Coronavir OC43 PCR NOT DETECTED Nasal Enterovir/Rhinovir PCR NOT DETECTED Nasal Influenza B PCR NOT DETECTED Nasal Influenza A PCR NOT DETECTED Nasal Parainfluen 1 PCR NOT DETECTED Nasal Parainfluen 2 PCR NOT DETECTED Nasal Parainfluen 3 PCR NOT DETECTED Nasal Parainfluen 4 PCR NOT DETECTED Nasal RSV (PCR) NOT DETECTED Nasal B.pertussis DNA PCR NOT DETECTED Nasal C.pneumoniae (PCR) NOT DETECTED T[place]anda Human Metapneumo PCR NOT DETECTED Nasal M.pneumoniae (PCR) NOT DETECTED Nasal SARS-CoV-2 (PCR) NOT DETECTED Diagnostic Imaging Diagnostic Imaging Results: positive Final report reviewed Assessment/Plan Problem List (1) Acute hypoxic respiratory failure: Impression: Patient and his went on a cruise, returned January 02. He has had progressive shortness of breath since. Worse when lying flat, worse with exertion. Occasional chest pain, but none right now. No history of pulmonary or heart issues in the past. No fevers or chills. proBNP elevated to 3000. Chest x-ray shows diffuse pulmonary infiltrates, cardiomegaly. Last echo was t this time, it showed EF of 55 to 60% indeterminate diastolic function, mild aortic stenosis. CTA shows moderate diffuse lung disease with mostly groundglass opacities and small consolidative components, likely edema. Continue IV Lasix 40 mg twice daily. Echo ordered, pending. Explained that this may not get done until Wednesday morning. Patient and his demonstrate understanding. Procalcitonin ordered to see if there is an underlying infectious process also occurring - negative. Leukocytosis with slight improvement. Afebrile overnight. No cough. Continue to hold off on antibiotics. CTA shows moderate diffuse lung disease with mostly groundglass opacities and small consolidative components, likely edema. (2) Pulmonary edema: Impression: Patient has diffuse infiltrates. Continue IV Lasix 40 mg twice daily as stated above. Continue to wean down oxygen. Continue to monitor strict ins and outs. Qualifiers: Chronicity: acute Qualified Code(s): J81.0 - Acute pulmonary edema (3) Elevated troponin: Impression: Stable. Likely due to longstanding myocardial injury in setting of likely new onset CHF. Patient with no active chest pain at this time. EKG shows a right bundle carlos block, with no previous EKGs to compare. There are no obvious ST elevations or depressions or any reciprocal changes. (4) Leukocytosis: Impression: Procalcitonin ordered to see if there is an underlying infectious process also occurring - negative. Leukocytosis with slight improvement. Afebrile overnight. No cough. Continue to hold off on antibiotics. Qualifiers: Leukocytosis type: unspecified Qualified Code(s): D72.829 - Elevated white blood cell count, unspecified (5) Acute kidney injury: Impression: Creatinine elevated; stable after two doses of Lasix. Possibly component of cardiorenal syndrome with this is new onset congestive heart failure. Continue 40 mg Lasix IV twice daily. Continue to trend creatinine. (6) Hypertension: Impression: Hold antihypertensives at this time as patient is borderline low blood pressure. Qualifiers: Hypertension type: unspecified Qualified Code(s): I10 - Essential (primary) hypertension
--- NOTE | 2024-03-05 11:40 | CT Report ---
PROCEDURE: CT Head WO INDICATIONS: ams TECHNIQUE: Noncontrast 4.5 mm thick angled axial sections acquired from the foramen magnum to the vertex. For r adiation dose reduction, the following was used: automated exposure control, adjustment of mA and/or kV according to patient size. COMPARISON: None. FINDINGS: Image quality: Excellent. CSF spaces: Basal cisterns are patent. No extra-axial fluid collections. Ventricles are normal in size and shape. Incidental note made of a posterior fossa arachnoid cyst or a pneumopericardium. Thi s is not a significant finding. Brain: No midline shift. No intracranial masses or hemorrhage. [place]-white matter interface is norm al. Intracranial carotid calcifications. Age-related volume loss and very mild, age-appropriate small vessel ischemic change. Skull and face: Calvarium and visualized facial bones are intact, without suspicious lesions. Sinuses: Visualized sinuses and mastoids are clear. IMPRESSION: No acute intracranial process. Reviewed by: Lane Carlson MD on 03/05/2024 11:39 AM [facility] Approved by: Lane Carlson MD on 03/05/2024 11:39 AM PST Station ID: [id number]
[2024-03-05] MEDS: FUROSEMIDE 40 MG TABLET PO STA (14:38)
[2024-03-05] MEDS: CALCIUM CARBONATE CHEW 500 MG TABLET PO PRN (18:06)
[2024-03-06 09:31] LABS: HCT - HEMATOCRIT 39.3 % (42.0-52.0); HGB - HEMOGLOBIN 12.4 g/dL (14.0-18.0); MEAN CORPUSCULAR HEMOGLOBIN 27.6 pg (27.0-31.0); MEAN CORPUSCULAR HGB CONC 31.6 g/dL (32.0-36.0); MEAN CORPUSCULAR VOLUME 87.3 fL (80.0-94.0); MEAN PLATELET VOLUME 10.6 fL (7.4-11.4); RED BLOOD COUNT 4.5 10^6/uL (4.70-6.10); RED CELL DISTRIBUTION WIDTH 14.6 % (12.0-15.0); WHITE BLOOD COUNT 14.8 x10^3/uL (4.8-10.8)
[2024-03-06 09:50] LABS: CALCIUM 8.5 mg/dL (8.5-10.3); CREATININE 1.3 mg/dL (0.6-1.3); POTASSIUM 3.3 mmol/L (3.5-4.5)
[2024-03-06] MEDS: ZINC OXIDE 20% OINT 30 GM TUBE TOP PRN (14:22)
--- NOTE | 2024-03-06 14:50 | PROVIDER PROGRESS NOTE ---
Subjective Subjective Subjective: Patient is a 68-year-old male with no cardiac history who presented with worsening dyspnea over the last 2 months after coming home from a cruise. Initial chest x-ray, as well as CTA showed diffuse pulmonary edema. We have been diuresing him with IV Lasix 40 mg twice daily. He put out 1.3 L of first day, approximately 3 L yesterday. His oxygen requirements have been decreasing from 3 L to 1 L today. His lungs sound better, with less crackles. Echo was performed today, final report is pending. Early this morning, patient did mention some chest tightness. Troponin was repeated. Initially, when he came in it was 165.1, this is continues to downtrend. This morning it was 139.8. EKG was repeated. It did show the same right bundle branch block as seen on the initial EKG. However did show some ST depressions in the lateral leads, leads I, aVL, V5, V6. As such, I did speak with cardiology, Dr. Bartlett at [facility]. He agrees that patient likely has undiagnosed CHF. He agrees with continued diuresis. He does not believe he is having NSTEMI. He does not think we should continue to trend troponin. He will need a cardiac catheterization, but he stated that this can be done in the outpatient setting. Current Medications Current Medications Current Medications: Current Medications Generic Name Dose Route Start Last Admin Trade Name Freq PRN Reason Stop Dose Admin Acetaminophen 650 mg 03/04/24 17:54 Acetaminophen 325 Mg Tablet PO Q4HR PRN Pain 1 to 4, or Fever Calcium Carbonate/Glycine 500 mg 03/05/24 17:02 03/06/24 14:19 Calcium Carbonate Chew 500 Mg Tablet PO 500 mg BID PRN Administration acid reflux Fluoxetine HCl 20 mg 03/05/24 10:00 03/06/24 09:14 Fluoxetine 10 Mg Capsule PO 20 mg DAILY ANNITA Administration Furosemide 40 mg 03/04/24 23:30 03/06/24 14:19 Furosemide 40 Mg/4 Ml Vial IVP 40 mg BIDDIURETIC ANNITA Administration Heparin Sodium (Porcine) 5,000 unit 03/04/24 21:00 03/06/24 09:14 Heparin 5,000 Unit/Ml Vial SUBQ 5,000 unit BID ANNITA Administration Multi-Ingredient Ointment 1 applic 03/05/24 02:04 03/06/24 14:22 Zinc Oxide 20% Oint 30 Gm Tube TOP 1 applic PRN PRN Administration Skin Care Ondansetron HCl 4 mg 03/04/24 17:54 Ondansetron Odt 4 Mg Tablet TL Q6HR PRN Nausea / Vomiting Sodium Chloride 10 ml 03/04/24 17:54 03/05/24 06:46 Sodium Chloride Flush 0.9% 10 Ml Syringe IVP 10 ml PRN PRN Administration NEEDED PER PROVIDER ORDERS Objective Vital Signs/Intake & Output Reviewed Vital Signs: Yes Vital Signs: Vital Signs x48h Temp Pulse Resp BP Pulse Ox O2 Flow Rate 03/06/24 07:44 97.9 F 76 25 H 109/66 93 3 Intake & Output: Intake & Output 03/03/24 03/04/24 03/05/24 03/06/24 23:59 23:59 23:59 23:59 Intake Total 1330 / 1330 590 / 590 Output Total 450 / 450 1600 / 1600 2480 / 2480 Balance -450 / -450 -270 / -270 -1890 / -1890 Weight (kg) 92.5 kg 90.5 kg 90.5 kg Objective General Appearance: positive No acute distress, Alert and Other (slow to respond, but alert and oriented x 4) Eyes Bilateral: positive Normal inspection and PERRL ENT: positive Pharynx nml, No signs of dehydration and Purulent nasal drainage Neck: positive Nml inspection, Thyroid nml and No JVD Respiratory: positive Chest non-tender and Rales (diffuse crackles; improving); negative No respiratory distress (mild respiratory distress; improved) Cardiovascular: positive Regular rate & rhythm, No murmur and No gallop; negative Systolic murmur or Diastolic murmur Abdomen: positive Non-tender and No organomegaly; negative Guarding, Hepatomegaly or Splenomegaly Back: positive Nml inspection; negative CVA tenderness (R) or CVA tenderness (L) Skin: positive Color nml, No rash and Dry Extremities: positive Non-tender, Full ROM and Pedal edema (trace) Neurologic/Psychiatric: positive Oriented x3 and Mood/affect nml Lab Results 03/06/24 09:25 03/06/24 09:25 Other Labs: Lab Results x24hrs 03/06/24 Range/Units 09:25 WBC 14.8 H (4.8-10.8) x10^3/uL RBC 4.50 L (4.70-6.10) 10^6/uL Hgb 12.4 L (14.0-18.0) g/dL Hct 39.3 L (42.0-52.0) % MCV 87.3 (80.0-94.0) fL MCH 27.6 (27.0-31.0) pg MCHC 31.6 L (32.0-36.0) g/dL RDW 14.6 (12.0-15.0) % Plt Count 281 (130-450) 10^3/uL MPV 10.6 (7.4-11.4) fL Sodium 139 (135-145) mmol/L Potassium 3.3 L (3.5-4.5) mmol/L Chloride 104 (101-111) mmol/L Carbon Dioxide 25 (21-32) mmol/L Anion Gap 10.0 (6-13) BUN 72 H (6-20) mg/dL Creatinine 1.3 (0.6-1.3) mg/dL Estimated GFR (MDRD) 55 L (>89) Glucose 90 (74-104) mg/dL Calcium 8.5 (8.5-10.3) mg/dL Troponin I High Sens 139.8 H* (2.3-19.7) ng/L Diagnostic Imaging Diagnostic Imaging Results: positive Final report reviewed Assessment/Plan Problem List (1) Acute hypoxic respiratory failure: Impression: Patient and his went on a cruise, returned January 02. He has had progressive shortness of breath since. Worse when lying flat, worse with exertion. Occasional chest pain, but none right now. No history of pulmonary or heart issues in the past. No fevers or chills. proBNP elevated to 3000. Chest x-ray shows diffuse pulmonary infiltrates, cardiomegaly. Last echo was t this time, it showed EF of 55 to 60% indeterminate diastolic function, mild aortic stenosis. CTA shows moderate diffuse lung disease with mostly groundglass opacities and small consolidative components, likely edema. Continue IV Lasix 40 mg twice daily. About 3-4 L urine output since admission. Echo ordered, pending. Explained that this may not get done until Wednesday morning. Patient and his demonstrate understanding. Procalcitonin ordered to see if there is an underlying infectious process also occurring - negative. Leukocytosis stable. Afebrile. No cough. Continue to hold off on antibiotics. Early this morning, patient did mention some chest tightness. Troponin was repeated. Initially, when he came in it was 165.1, this continues to downtrend. This morning it was 139.8. EKG was repeated. It did show the same right bundle branch block as seen on the initial EKG. However did show some ST depressions in the lateral leads, leads I, aVL, V5, V6. As such, I did speak with cardiology, Dr. Bartlett at [facility]. He agrees that patient likely has undiagnosed CHF. He agrees with continued diuresis. He does not believe he is having NSTEMI. He does not think we should continue to trend troponin. He will need a cardiac catheterization, but he stated that this can be done in the outpatient setting. (2) Pulmonary edema: Impression: Patient has diffuse infiltrates. Continue IV Lasix 40 mg twice daily as stated above. Continue to wean down oxygen. Continue to monitor strict ins and outs. Qualifiers: Chronicity: acute Qualified Code(s): J81.0 - Acute pulmonary edema (3) Elevated troponin: Impression: Downtrending. Likely due to longstanding myocardial injury in setting of likely new onset CHF for the past two months. Patient with no active chest pain at this time. EKG shows a right bundle carlos block, with no previous EKGs to compare. There are no obvious ST elevations or depressions or any reciprocal changes. (4) Leukocytosis: Impression: Procalcitonin ordered to see if there is an underlying infectious process also occurring - negative. Leukocytosis stanle. Afebrile overnight. No cough. Continue to hold off on antibiotics. Qualifiers: Leukocytosis type: unspecified Qualified Code(s): D72.829 - Elevated white blood cell count, unspecified (5) Acute kidney injury: Impression: Creatinine elevated; stable after two doses of Lasix. Possibly component of cardiorenal syndrome with this is new onset congestive heart failure. Continue 40 mg Lasix IV twice daily. Continue to trend creatinine. (6) Hypertension: Impression: Hold antihypertensives at this time as patient is borderline low blood pressure. Qualifiers: Hypertension type: unspecified Qualified Code(s): I10 - Essential (primary) hypertension
[2024-03-06] MEDS: POTASSIUM CHLORIDE 20 MEQ TABLET PO ONE (19:38)
[2024-03-07 06:17] LABS: HCT - HEMATOCRIT 40.4 % (42.0-52.0); HGB - HEMOGLOBIN 12.8 g/dL (14.0-18.0); MEAN CORPUSCULAR HEMOGLOBIN 27.6 pg (27.0-31.0); MEAN CORPUSCULAR HGB CONC 31.7 g/dL (32.0-36.0); MEAN CORPUSCULAR VOLUME 87.3 fL (80.0-94.0); RED BLOOD COUNT 4.63 10^6/uL (4.70-6.10); RED CELL DISTRIBUTION WIDTH 14.6 % (12.0-15.0); WHITE BLOOD COUNT 12.5 x10^3/uL (4.8-10.8)
[2024-03-07 06:33] LABS: CALCIUM 8.1 mg/dL (8.5-10.3); CREATININE 0.9 mg/dL (0.6-1.3); MAGNESIUM 1.9 mg/dL (1.7-2.3); POTASSIUM 3.2 mmol/L (3.5-4.5)
[2024-03-07 07:53] VITALS: BP 106/83; TEMP 97.3; O2SAT 92
[2024-03-07] MEDS: polyethylene glycoL 3350 17 GM PACKET PO SCH (09:30)
[2024-03-07] MEDS: SODIUM CHLORIDE FLUSH 0.9% 10 ML SYRINGE IVP SCH (09:30)
--- NOTE | 2024-03-07 12:51 | Discharge Summary ---
"Discharge Summary Admit Date: 03/04/24 Discharge Date: 03/07/24 Discharging Provider: Shannon Wilhelm Md Primary Care Provider: Albert Burgess MD Code Status: Attempt Resuscitation DIAGNOSES Discharge Diagnoses with Status of Each Condition: 1. Acute on chronic systolic heart failure due to #2 2. Acute respiratory failure with hypoxia 3. Severe aortic stenosis 4. Hypertension 5. Nonspecific chest wall pain 6. Troponin elevation 7. Acute respiratory failure with hypoxia 8. leukocytosis 9. acute kidney injury HPI History of Present Illness: Patient is a 68-year-old male with a history of hypertension who presents after worsening shortness of breath over the last 2 months. His is at bedside who helps with history as patient is having conversational dyspnea. Per patient and , they went on a cruise, and return on January 02. Since then, he has had persistent shortness of breath. Initially, they did go to the primary care provider who prescribed a inhaler and cough syrup. Initially, this did help out a little bit, however over the last week and a half it worsened. On , they went back to the urgent care, and they recommended he do a stress test, which they scheduled for the following week. Currently, he continues to have shortness of breath. He states it is much improved while in the emergency room than it was at home. However, he is continuing to gasp for air, and having conversational dyspnea. The shortness of breath does worsen when he does activity or lies flat. He states that at home, he was having some occasional chest pain with radiation to the left and right arms. However, currently he is not having any. He does state that he is having some difficulty with ambulation due to the shortness of breath, so he has been minimally active at home. He denies any fevers or chills. He does have a cough with some clear sputum production. His nor anybody around him has had any similar symptoms. He states his diet has been poor, and he has not been eating much or drinking much at home. He has no history of any lung problems, has never smoked tobacco, has never lived in a smoking household, or has never been diagnosed with any asthma. He has no history of heart problems, but does state that it runs in the family. In the ED, patient was hypotensive with blood pressure in the 90s over 50s, he was saturating 89% on room air, he was breathing 30 to 35 breaths/min. He was afebrile, and his heart rate was within normal limits. He had a leukocytosis of 14.5, his hemoglobin was 12.3, his creatinine was 1.8, which is up from his baseline of 0.8-1.1. His proBNP was elevated at 3372. His respiratory viral panel was negative. A CTA remains pending, as does the troponin, EKG, proBNP. CONSULTS | PROCEDURES Procedures: 1. Echocardiogram with moderate concentric left ventricular hypertrophy. Left ventricular systolic ejection fraction is mild to moderately impaired with an ejection fraction of 40 to 45%. Right ventricular systolic function is normal. Severe aortic stenosis with a peak mean pressure gradient of 74 mmHg / 52 mmHg. The aortic valve area by continuity equation is 0.94 cm. There is moderate aortic regurgitation. 2. Moderate to severe lung disease on chest x-ray with poor aeration bilaterally. Small effusions. Differential include edema, infection, alveolar damage 3. CT angio of chest is without pulmonary emboli. Moderate diffuse lung disease with groundglass opacities and multifocal consolidations. Likely edema. 4. CT of head without does not have any acute intracranial process ALLERGIES Allergies Allergy/AdvReac Type Severity Reaction Status Date / Time CHUY Inhibitors Allergy Unknown Verified 03/04/24 12:38 sulfite Allergy Rash Verified 03/04/24 12:38 MEDICATIONS Ambulatory Orders Medication Instructions Recorded Confirmed amlodipine 10 mg tablet 10 mg PO DAILY 03/05/24 03/05/24 bisoprolol 5 1 tab PO DAILY 03/05/24 03/05/24 mg-hydrochlorothiazide 6.25 mg tablet fluoxetine 20 mg capsule 20 mg PO DAILY 03/05/24 03/05/24 furosemide 40 mg tablet (Lasix) 40 mg PO DAILY #30 tabs 03/07/24 potassium chloride 20 mEq 20 meq PO DAILY #30 tabs 03/07/24 tablet,extended release (K-Tab) LABS 03/07/24 05:40 03/07/24 05:40 Discharge Plan Discharge Patient Disposition: Home, Self Care Condition: Stable Medically Cleared Date:: 03/07/24 Prescriptions: New furosemide [Lasix] 40 mg tablet 40 mg PO DAILY Qty: 30 2RF potassium chloride [K-Tab] 20 mEq tablet extended release 20 meq PO DAILY Qty: 30 2RF Continued amlodipine 10 mg tablet 10 mg PO DAILY Patient Comments: TAKE ONE TABLET BY MOUTH EVERY DAY bisoprolol-hydrochlorothiazide 5-6.25 mg tablet 1 tab PO DAILY fluoxetine 20 mg capsule 20 mg PO DAILY Activity Restrictions: Activity as Tolerated Diet: Low Sodium Health Concerns: You have a history of high blood pressure. Regards to self is relatively well. Unfortunately you developed worsening shortness of breath over the last 2 months. Chest x-ray and CAT scan in the emergency room appear to have severe pulmonary edema. With that came a very low oxygen and your body required 2 L of nasal cannula oxygen through your nose. In layman's terms it looks as if you had water retention within your lungs from congestive heart failure. The treatment for congestive heart failure is medications that will make you urinate the excessive fluid. It is called diuresis. So we aggressively diuresed you over the last few days. Your oxygen level is now normal on room air. We did a study called an echocardiogram which is an ultrasound of your heart. Your heart does have congestive heart failure. The left main chamber called the left ventricle has a mild to moderately impaired ejection fraction. When the heart fills and then it squeezes blood out as a pump, normal ejection fraction is 55 to 65%. Yours is 40 to 45%. The congestive heart failure is from severe aortic stenosis. The instructions for when you go home: 1. You need to see your primary care provider in follow-up. 2. I will be starting you on Lasix 20 mg a day. It is a medicine that makes you diurese. 3. Because Lasix causes potassium depletion in your blood, I will be also starting you on a potassium tablet today. 4. Please eat a low-salt diet. This will help stop water retention and congestive heart failure. Weigh yourself daily. If you find yourself gaining too much weight over 2 days, say 6 pounds, take an extra water pill that day. 5. One of the things that your primary care provider needs to do is to refer you to a box tender. That box tender will evaluate you for what the treatment should be for your severe aortic stenosis/valve disease. 6. The different cardiology groups that you could be recommended to are [facility] medical [phone]. They have a box tender in [place]. [facility]/[phone]. [facility]/[phone] [facility] [place] [facility]/[phone] [place]/[phone] Print Language: Urdu Patient Instructions: Aortic Valve Stenosis Dc, Aortic Stenosis Tx Ch Follow-up Care: Albert Burgess MD [Primary Care Provider] -"
== END 2024-03-07 13:19 | disposition home or self-care (01) | DRG 189 ==
LOC: ED 12:20 → MS3 15:41
PROVIDERS: ADMIT Internal Medicine; ATTEND Internal Medicine
DX: I45.10 Unspecified right bundle-branch block; I35.0 Nonrheumatic aortic (valve) stenosis; R07.89 Other chest pain; R91.8 Other nonspecific abnormal finding of lung field; I11.0 Hypertensive heart disease with heart failure; I95.9 Hypotension, unspecified; I50.9 Heart failure, unspecified; D72.829 Elevated white blood cell count, unspecified; N17.9 Acute kidney failure, unspecified; I50.23 Acute on chronic systolic (congestive) heart failure; R79.89 Other specified abnormal findings of blood chemistry; J96.01 Acute respiratory failure with hypoxia; R09.02 Hypoxemia

== ENCOUNTER 2024-03-13 20:39 | Inpatient (IN) ==
--- NOTE | 2024-03-13 21:02 | ED Physician Documentation ---
PD HPI DYSPNEA Stated complaint Stated Complaint: SOA Chief complaint Chief Complaint: Cardiac History obtained from History obtained from: Patient and Family Additional information Additional information: 68-year-old male with history of congestive heart failure presents by private vehicle from home for 2 to 3 days of worsening shortness of breath. Patient 7admitted to the hospital from 03/04-03/07 for shortness of breath. Echocardiogram showed left ventricular hypertrophy with ejection fraction 40 to 45%. Patient does not use oxygen at baseline. Significant other at bedside states that patient oxygen saturations at home have been variable from 83-90% and he has had increasing labored breathing, so she decided to bring him to the ED for evaluation. On arrival patient was tachypneic with saturations in the 80s. Patient taken quickly to ED bed for assessment. Meds/Allgy Home Medications Ambulatory Orders Medication Instructions Recorded Confirmed amlodipine 10 mg tablet 10 mg PO DAILY 03/05/24 03/13/24 bisoprolol 5 1 tab PO DAILY 03/05/24 03/13/24 mg-hydrochlorothiazide 6.25 mg tablet fluoxetine 20 mg capsule 20 mg PO DAILY 03/05/24 03/13/24 furosemide 40 mg tablet (Lasix) 40 mg PO DAILY #30 tabs 03/07/24 03/13/24 potassium chloride 20 mEq 20 meq PO DAILY #30 tabs 03/07/24 03/13/24 tablet,extended release (K-Tab) albuterol sulfate 90 mcg/actuation inhalation 03/13/24 aerosol inhaler Allergies Allergies Allergy/AdvReac Type Severity Reaction Status Date / Time CHUY Inhibitors Allergy Unknown Verified 03/13/24 20:41 sulfite Allergy Rash Verified 03/13/24 20:41 [facility] Medical History Medical History (Updated 03/14/24 @ 01:37 by Ira Schneider MD) Hypertension Congestive heart failure Social History Social History Smoking Status: Former smoker Second hand tobacco smoke exposure: No Do you dip or chew tobacco?: No Do you vape?: No Patient requests smoking cessation consult: No Initiate information on smoking cessation: No Relationship: Level: Assisted Do you feel safe in your home environment?: Yes Suffered physical, verbal, emotional, or financial abuse?: No History of Abuse: No Frequency: Occasional Substance Use: denies use POLST Patient has POLST: No POLST Status: Full Code Exam Constitutional debilitated, frail, appears older than stated age Chest inspection of chest normal and palpation of chest normal Respiratory breath sounds equal bilaterally tachypnea, inspiratory crackles present all lung suazo Cardiovascular normal heart rate noted Extremities 2+ pitting edema to knees bilaterally 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 II-XII intact, no movement abnormality noted and speech normal Psychiatry mental status grossly normal, oriented x3 and thought process normal Skin skin color normal, no rash and no lesions Results Vitals Vitals: Vital Signs - 24 hr 03/13/24 20:41 03/13/24 21:14 03/13/24 21:18 Temperature 36.8 C 36.9 C Temperature Source Tympanic Temporal Artery Scan Pulse Rate 83 78 78 Respiratory Rate 40 H 33 H 29 H Blood Pressure 114/64 96/55 L 96/52 L O2 Saturation 89 L 92 92 Oxygen Delivery Method O2 Source Room air Nasal cannula Nasal cannula If not protocol: Oxygen Flow, liters/minute 5 5 Pain Intensity 5 0 0 03/13/24 22:00 03/13/24 22:30 03/13/24 22:47 Temperature Temperature Source Pulse Rate 107 H 80 Respiratory Rate Blood Pressure 121/75 93/56 L O2 Saturation 88 L 93 Oxygen Delivery Method Nasal Cannula O2 Source Nasal cannula Nasal cannula If not protocol: Oxygen Flow, liters/minute 5 5 4 Pain Intensity 0 0 03/13/24 22:49 03/13/24 23:11 Temperature Temperature Source Pulse Rate 77 76 Respiratory Rate 20 20 Blood Pressure 90/49 L 90/55 L O2 Saturation 91 L 90 L Oxygen Delivery Method O2 Source Nasal cannula Room air If not protocol: Oxygen Flow, liters/minute 4 4 Pain Intensity 2 2 Oxygen O2 Source Room air Labs Labs: Laboratory Tests 03/13/24 21:06 WBC 17.8 H RBC 4.53 L Hgb 12.6 L Hct 39.3 L MCV 86.8 MCH 27.8 MCHC 32.1 RDW 15.1 H Plt Count 305 MPV 10.4 Neut # (Auto) 15.0 H Lymph # (Auto) 1.1 L [place] # (Auto) 1.5 H Eos # (Auto) 0.1 Baso # (Auto) 0.0 Absolute Nucleated RBC 0.00 Nucleated RBC % 0.0 Sodium 136 Potassium 4.4 Chloride 104 Carbon Dioxide 22 Anion Gap 10.0 BUN 38 H Creatinine 1.1 Estimated GFR (MDRD) 67 L Glucose 103 Calcium 8.5 Total Bilirubin 0.7 AST 17 ALT 33 Alkaline Phosphatase 75 Troponin I High Sens 152.3 H* B-Natriuretic Peptide 5320 H Total Protein 7.8 Albumin 3.3 Globulin 4.5 H Albumin/Globulin Ratio 0.7 L PD Medical Decision Making ED course Complexity details: reviewed old records, reviewed results, re-evaluated patient, considered differential, d/w patient and d/w family ED course: Patient with worsening shortness of breath, recently diagnosed with congestive heart failure. He is on diuretics but does appear to be grossly volume overloaded with pitting edema and diffuse inspiratory crackles. Hypoxic on room air, placed on supplemental nasal cannula. IV diuretics ordered. Laboratory work reviewed, wbc count 17.8, up from 12.5 at discharge, hemoglobin 12.6, sodium 136, potassium 4.4, creatinine 1.1. Troponin mildly elevated at 152, patient had trop 140 at time of discharge. Patient not complaining of chest pain, EKG nonischemic, likely demand from respiratory effort and hypoxia. CXR with persistent lung disease. Patient is diuresing well, however he did urinate on the floor and so exact output unable to be measured. Plan to admit patient for further diuresis and treatment. Discharge Plan Discharge Patient Disposition: 66 [facility] DC/Xfer Condition: Serious Clinical Impression: Acute on chronic systolic heart failure, Acute hypoxic respiratory failure Interventions: ED Admission Assessment Last Done: 03/14/24 00:36
[2024-03-13 21:14] LABS: BASOPHILS % (AUTO) 0.2 %; EOSINOPHILS # (AUTO) 0.1 10^3/uL (0.0-0.7); EOSINOPHILS % (AUTO) 0.6 %; HCT - HEMATOCRIT 39.3 % (42.0-52.0); HGB - HEMOGLOBIN 12.6 g/dL (14.0-18.0); LYMPHOCYTES # (AUTO) 1.1 10^3/uL (1.5-3.5); LYMPHOCYTES % (AUTO) 6.1 %; MEAN CORPUSCULAR HEMOGLOBIN 27.8 pg (27.0-31.0); MEAN CORPUSCULAR HGB CONC 32.1 g/dL (32.0-36.0); MEAN CORPUSCULAR VOLUME 86.8 fL (80.0-94.0); MEAN PLATELET VOLUME 10.4 fL (7.4-11.4); MONOCYTES # (AUTO) 1.5 10^3/uL (0.0-1.0); MONOCYTES % (AUTO) 8.3 %; NEUTROPHILS % (AUTO) 84.3 %; PLT - PLATELET COUNT 305 10^3/uL (130-450); RED BLOOD COUNT 4.53 10^6/uL (4.70-6.10); RED CELL DISTRIBUTION WIDTH 15.1 % (12.0-15.0); WHITE BLOOD COUNT 17.8 x10^3/uL (4.8-10.8)
[2024-03-13 21:28] LABS: ALBUMIN 3.3 g/dL (3.2-5.5); ALBUMIN/GLOBULIN RATIO 0.7 (1.0-2.2); BILIRUBIN,TOTAL 0.7 mg/dL (0.2-1.0); CALCIUM 8.5 mg/dL (8.5-10.3); CREATININE 1.1 mg/dL (0.6-1.3); POTASSIUM 4.4 mmol/L (3.5-4.5); TOTAL PROTEIN 7.8 g/dL (6.4-8.9)
[2024-03-13] MEDS: FUROSEMIDE 40 MG/4 ML VIAL IVP STA (21:35)
[2024-03-13 21:36] LABS: TROPONIN I HIGH SENSITIVITY 152.3 ng/L (2.3-19.7)
--- NOTE | 2024-03-13 21:45 | XRAY Report ---
PROCEDURE: XR Chest 1V INDICATIONS: dyspnea, hypoxia TECHNIQUE: One view of the chest was acquired. COMPARISON: Chest radiograph 03/04/2024. FINDINGS: Surgical changes and devices: None. Lungs and pleura: No pleural effusions or pneumothorax. Compared to prior radiograph on 06/18/2024, n o significant change in diffuse bilateral disease.. Mediastinum: Mediastinal contours appear normal. Heart size is enlarged. Bones and chest wall: No suspicious bony lesions. Overlying soft tissues appear unremarkable. IMPRESSION: No significant change in diffuse bilateral lung disease since prior radiograph 03/04/2024 Cardiomegaly Reviewed by: Rosaline Sampson MD, PhD on 03/13/2024 9:44 PM PST Approved by: Rosaline Sampson MD, PhD on 03/13/2024 9:44 PM PST Station ID: [id number]
--- NOTE | 2024-03-13 23:16 | HISTORY & PHYSICAL EXAMINATION ---
Chief Complaint Chief Complaint Chief Complaint: shortness of breath History of Present Illness Admitted From Admitted From:: home History Obtained From Records Reviewed: yes History obtained from: patient Exam Limitations: telemedicine History of Present Illness HPI Comment/Other: Mr Cruz is a 68-year-old male with a history of hypertension and recently diagnosed HFrEF, admitted to hospital last week 03/04-03/07 for CHFe exacerbation, troponin elevation (trend flat ~160) and found to have severe . Discharged on maintenance diuretic lasix 20 mg daily with plan for outpatient cardiology referral for further evaluation. "Echocardiogram 03/06: Moderate concentric left ventricular hypertrophy. Left ventricular systolic ejection fraction is mild to moderately impaired with an ejection fraction of 40 to 45%. Right ventricular systolic function is normal. Severe aortic stenosis with a peak mean pressure gradient of 74 mmHg / 52 mmHg. The aortic valve area by continuity equation is 0.94 cm. There is moderate aortic regurgitation." He presents to the ER today with complaints of shortness of breath, found to be hypoxic and currently on 4 L NC, he does not use home O2. Patient reports he felt fine after leaving the hospital last week, progressively worse since yesterday and today more short of breath and returned to the ER. He denies any chest pain, has had some mild R shoulder pain, comes and goes. Denies abdominal pain, nausea, vomiting, fevers or chills. He has had a dry cough for the past few weeks, unchanged. He reports compliance with home medications including antihypertensives and lasix as prescribed. He did follow up with PCP and obtained cardiology referral - appointment not scheduled yet. Currently he is feeling much better since receiving IV diuretic in ER. Review of Systems Constitutional Denies: Fever or Chills Cardiovascular Reports: shortness of breath with exertion and shortness of breath when lying down; Denies: Irregular heart rate, chest pain, palpitations or Syncope Respiratory Reports: Shortness of breath and Cough; Denies: Sputum production or Wheezing Gastrointestinal Denies: Abdominal pain, Nausea, Vomiting, Diarrhea or Constipation Genitourinary Denies: Painful urination or Flank pain Musculoskeletal Reports: Back pain Integumentary/Breast Denies: Rash or Itching Neurological Denies: Headache or General weakness Allergic/Immunologic Denies: Wheezing [facility] Medical History Medical History (Updated 03/08/24 @ 00:00 by ) Hypertension Congestive heart failure Social History Social History Smoking Status: Never smoker Second hand tobacco smoke exposure: No Do you dip or chew tobacco?: No Do you vape?: No Relationship: Level: Independent Do you feel safe in your home environment?: Yes Suffered physical, verbal, emotional, or financial abuse?: No History of Abuse: No Frequency: Occasional POLST Patient has POLST: No POLST Status: Full Code Meds/Allgy Home Medications Ambulatory Orders Medication Instructions Recorded Confirmed amlodipine 10 mg tablet 10 mg PO DAILY 03/05/24 03/13/24 bisoprolol 5 1 tab PO DAILY 03/05/24 03/13/24 mg-hydrochlorothiazide 6.25 mg tablet fluoxetine 20 mg capsule 20 mg PO DAILY 03/05/24 03/13/24 furosemide 40 mg tablet (Lasix) 40 mg PO DAILY #30 tabs 03/07/24 03/13/24 potassium chloride 20 mEq 20 meq PO DAILY #30 tabs 03/07/24 03/13/24 tablet,extended release (K-Tab) albuterol sulfate 90 mcg/actuation inhalation 03/13/24 aerosol inhaler Allergies Allergies Allergy/AdvReac Type Severity Reaction Status Date / Time CHUY Inhibitors Allergy Unknown Verified 03/13/24 20:41 sulfite Allergy Rash Verified 03/13/24 20:41 Exam Constitutional normal general appearance and no apparent distress HENMT normocephalic and head/scalp atraumatic Chest inspection of chest normal Respiratory normal respiratory effort (at rest, laying in bed ) Cardiovascular normal heart rate noted Neurology no movement abnormality noted and no focal motor deficit noted Psychiatry mental status grossly normal, oriented x3, thought process normal, cooperative and affect normal Skin skin color normal Conclusion/Plan Lab Results Lab results reviewed: Yes 03/13/24 21:06 03/13/24 21:06 Diagnostic Imaging Results Diagnostic Imaging Results: positive Final report reviewed EKG Results EKG Interpreted Independently: Yes EKG Comparison: Unchanged from prior EKG EKG Findings: RBBB and ST depressions unchanged from prior EKG last week. Other Other Results/Comments: Assessment/Plan: Acute hypoxic respiratory failure HFrEF exacerbation Severe aortic stenosis -Recently diagnosed CHF with EF 40-45% on echocardiogram last week -Discharged on lasix 20 mg daily -Continue with IV diuresis - clinically improved with lasix 40 mg IV x 1 dose in ER -Continue lasix 40 mg IV BID -Daily weights -Strict I/O -Follow up TSH, HA1c, lipid panel -ASA and statin, further GDMT pending improved BP -Outpatient cardiology referral obtained - appointment not scheduled yet per patient Bilateral pulmonary opacities on CXR -Likely pulmonary edema, CTA chest last week neg for PE and showed bilateral opacities as well -Leukocytosis of unclear etiology - ~14 last week, now 17 -Procal last week negative, repeat ordered -Currently patient denies productive cough, fevers, or chills, no clinical signs of pneumonia -Viral resp panel neg 1/ NSTEMI, likely type II in setting of CHF exacerbation -Trop 152 is similar to troponin range last week (~160), likely demand ischemia -Trend q6h - if rising troponin would consider anticoagulation -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
[2024-03-13] MEDS ORDERED: ONDANSETRON 4 MG/2 ML VIAL IVP PRN (23:21)
[2024-03-13] MEDS ORDERED: SODIUM CHLORIDE FLUSH 0.9% 10 ML SYRINGE IVP PRN (23:21)
[2024-03-13] MEDS ORDERED: ACETAMINOPHEN 325 MG TABLET PO PRN (23:21)
[2024-03-14] MEDS: SODIUM CHLORIDE FLUSH 0.9% 10 ML SYRINGE IVP SCH (01:14)
[2024-03-14] MEDS: MELATONIN 3 MG TABLET PO PRN (02:10)
--- NOTE | 2024-03-14 02:50 | PROVIDER PROGRESS NOTE ---
Line Fisher Note Line Fisher Note Line Fisher Note: RN paged " FYI: Pt admitted for CHF Exacerbation. Initial Troponin drawn in the ED was 152.3, repeat Troponin drawn at 0209 is 127.7." Demand ischemia from CHF exacerbation. continue to manage CHF Azul Molina
[2024-03-14 05:27] LABS: HCT - HEMATOCRIT 36.1 % (42.0-52.0); HGB - HEMOGLOBIN 11.4 g/dL (14.0-18.0); MEAN CORPUSCULAR HEMOGLOBIN 27.8 pg (27.0-31.0); MEAN CORPUSCULAR HGB CONC 31.6 g/dL (32.0-36.0); MEAN PLATELET VOLUME 10.3 fL (7.4-11.4); RED BLOOD COUNT 4.1 10^6/uL (4.70-6.10); RED CELL DISTRIBUTION WIDTH 15.1 % (12.0-15.0); WHITE BLOOD COUNT 16.1 x10^3/uL (4.8-10.8)
[2024-03-14 05:48] LABS: BUN - BLOOD UREA NITROGEN 35 mg/dL (6-20); CALCIUM 8.1 mg/dL (8.5-10.3); CARBON DIOXIDE - CO2 25 mmol/L (21-32); CHLORIDE 104 mmol/L (101-111); CHOL/HDL RATIO 3.2 (<5.0); CHOLESTEROL 84 mg/dL; CREATININE 1.2 mg/dL (0.6-1.3); GFR - MDRD 60 (>89); GLUCOSE 97 mg/dL (74-104); HDL CHOLESTEROL 26 mg/dL; LDL CHOLESTEROL,CALCULATED 49 mg/dL; LDL/HDL RATIO 1.9 (<3.6); POTASSIUM 3.7 mmol/L (3.5-4.5); SODIUM 138 mmol/L (135-145); TRIGLYCERIDES 45 mg/dL; VLDL CHOLESTEROL 9 mg/dL
[2024-03-14 08:44] LABS: THYROID STIMULATING HORMONE 4.6 uIU/mL (0.34-5.60)
[2024-03-14] MEDS: HEPARIN 5,000 UNIT/ML VIAL SUBQ SCH (08:44)
[2024-03-14] MEDS: FUROSEMIDE 20 MG/2 ML VIAL IVP SCH (08:44)
[2024-03-14] MEDS: ASPIRIN EC 81 MG TABLET PO SCH (08:44)
[2024-03-14] MEDS: FLUoxetine 10 MG CAPSULE PO SCH (08:45)
[2024-03-14] MEDS: ATORVASTATIN 40 MG TABLET PO SCH (08:45)
[2024-03-14 09:57] LABS: ESTIMATED AVERAGE GLUCOSE 108 mg/dL (70-100); HEMOGLOBIN A1c% 5.4 % (4.27-6.07)
--- NOTE | 2024-03-14 11:20 | PHARMACY PROGRESS NOTE ---
Best Possible Medication History Admit Date and Time: 03/13/24 2321 Home Medications Medication Instructions Recorded Confirmed Type amlodipine 10 mg tablet 10 mg PO DAILY 03/05/24 03/13/24 History bisoprolol 5 1 tab PO DAILY 03/05/24 03/13/24 History mg-hydrochlorothiazide 6.25 mg tablet fluoxetine 20 mg capsule 20 mg PO DAILY 03/05/24 03/13/24 History furosemide 40 mg tablet (Lasix) 40 mg PO DAILY #30 tabs 03/07/24 03/13/24 Rx potassium chloride 20 mEq 20 meq PO DAILY #30 tabs 03/07/24 03/13/24 Rx tablet,extended release (K-Tab) Processed by: Pharmacy (Medication Reconciliation completed by Automotive Services ManagerJim) Medications reviewed in ED?: No Medication History completed: Yes Patient Interview: Completed Secondary Source(s): Insurance records [facility] Statement: As the person ultimately responsible for medication therapy, providers are able to order a medication from an existing home medication list in [facility] via the "Reconcile Routine" prior to Confirmation of that medication by legal support assistant. Such practice is discouraged except when the physician, in their clinical judgment, deems that a medical need exists for a medication without regard to previous use.
--- NOTE | 2024-03-14 12:52 | PROVIDER PROGRESS NOTE ---
Subjective Subjective Subjective: Patient's echo on last admission showed EF of 40 to 45%, severe aortic stenosis. He was discharged home on Lasix 20 mg daily. No other medications can be started as he was borderline hypotensive. He was advised to follow-up with cardiology in the outpatient setting. He will be seeing [facility] cardiology group out of [place]. First, I spoke with Dr. Peoples, who was covering for Dr. Mullen (who was assigned to this patient). They directed me to Dr. Craven, the workforce advisor on-call at [facility]. 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 Current Medications Current Medications Current Medications: Current Medications Generic Name Dose Route Start Last Admin Trade Name Freq PRN Reason Stop Dose Admin Acetaminophen 650 mg 03/13/24 23:21 Acetaminophen 325 Mg Tablet PO Q4HR PRN Pain 1 to 4, or Fever Aspirin 81 mg 03/14/24 09:00 03/14/24 08:44 Aspirin Ec 81 Mg Tablet PO 81 mg DAILY ANNITA Administration Atorvastatin Calcium 40 mg 03/14/24 09:00 03/14/24 08:45 Atorvastatin 40 Mg Tablet PO 40 mg DAILY ANNITA Administration Fluoxetine HCl 20 mg 03/14/24 09:00 03/14/24 08:45 Fluoxetine 10 Mg Capsule PO 20 mg DAILY ANNITA Administration Furosemide 40 mg 03/14/24 09:00 03/14/24 08:44 Furosemide 20 Mg/2 Ml Vial IVP 40 mg BID ANNITA Administration Heparin Sodium (Porcine) 5,000 unit 03/14/24 09:00 03/14/24 08:44 Heparin 5,000 Unit/Ml Vial SUBQ 5,000 unit BID ANNITA Administration Melatonin 9 mg 03/14/24 01:15 03/14/24 02:10 Melatonin 3 Mg Tablet PO 9 mg QPM PRN Administration Insomnia Ondansetron HCl 4 mg 03/13/24 23:21 Ondansetron 4 Mg/2 Ml Vial IVP Q6HR PRN Nausea / Vomiting Sodium Chloride 10 ml 03/13/24 23:21 Sodium Chloride Flush 0.9% 10 Ml Syringe IVP PRN PRN NEEDED PER PROVIDER ORDERS Sodium Chloride 10 ml 03/14/24 01:00 03/14/24 08:45 Sodium Chloride Flush 0.9% 10 Ml Syringe IVP 10 ml 0100,0900,1700 ANNITA Administration Objective Vital Signs/Intake & Output Reviewed Vital Signs: Yes Vital Signs: Vital Signs x48h Temp Pulse Resp BP Pulse Ox O2 Flow Rate 03/14/24 09:03 97.7 F 72 22 93/55 L 93 4 03/14/24 05:00 98.4 F 72 20 95/61 93 Intake & Output: Intake & Output 03/11/24 03/12/24 03/13/24 03/14/24 23:59 23:59 23:59 23:59 Intake Total 240 / 240 Output Total 500 / 500 Balance -260 / -260 Weight (kg) 84.822 kg 87.5 kg Objective General Appearance: positive No acute distress, Alert and Other (slow to respond, but alert and oriented x 4) Eyes Bilateral: positive Normal inspection and PERRL ENT: positive Pharynx nml, No signs of dehydration and Purulent nasal drainage Neck: positive Nml inspection, Thyroid nml and No JVD Respiratory: positive Chest non-tender and Rales (diffuse crackles; improving); negative No respiratory distress (mild respiratory distress; improved) Cardiovascular: positive Regular rate & rhythm, No murmur and No gallop; negative Systolic murmur or Diastolic murmur Abdomen: positive Non-tender and No organomegaly; negative Guarding, Hepatomegaly or Splenomegaly Back: positive Nml inspection; negative CVA tenderness (R) or CVA tenderness (L) Skin: positive Color nml, No rash and Dry Extremities: positive Non-tender, Full ROM and No pedal edema Neurologic/Psychiatric: positive Oriented x3 and Mood/affect nml Lab Results 03/14/24 05:13 03/14/24 05:13 Other Labs: Lab Results x24hrs 03/14/24 03/14/24 03/14/24 Range/Units 07:50 05:13 02:09 WBC 16.1 H (4.8-10.8) x10^3/uL RBC 4.10 L (4.70-6.10) 10^6/uL Hgb 11.4 L (14.0-18.0) g/dL Hct 36.1 L (42.0-52.0) % MCV 88.0 (80.0-94.0) fL MCH 27.8 (27.0-31.0) pg MCHC 31.6 L (32.0-36.0) g/dL RDW 15.1 H (12.0-15.0) % Plt Count 278 (130-450) 10^3/uL MPV 10.3 (7.4-11.4) fL Neut # (Auto) (1.5-6.6) 10^3/uL Lymph # (Auto) (1.5-3.5) 10^3/uL Russell # (Auto) (0.0-1.0) 10^3/uL Eos # (Auto) (0.0-0.7) 10^3/uL Baso # (Auto) (0.0-0.1) 10^3/uL Absolute Nucleated RBC x10^3/uL Nucleated RBC % /100WBC Sodium 138 (135-145) mmol/L Potassium 3.7 (3.5-4.5) mmol/L Chloride 104 (101-111) mmol/L Carbon Dioxide 25 (21-32) mmol/L Anion Gap 9.0 (6-13) BUN 35 H (6-20) mg/dL Creatinine 1.2 (0.6-1.3) mg/dL Estimated GFR (MDRD) 60 L (>89) Glucose 97 (74-104) mg/dL Estimat Average Glucose 108 H (70-100) mg/dL Hemoglobin A1c % 5.4 (4.27-6.07) % Calcium 8.1 L (8.5-10.3) mg/dL Total Bilirubin (0.2-1.0) mg/dL AST (10-42) IU/L ALT (10-60) IU/L Alkaline Phosphatase (42-121) IU/L Troponin I High Sens 118.7 H* 127.7 H* (2.3-19.7) ng/L B-Natriuretic Peptide (5-100) pg/mL Total Protein (6.4-8.9) g/dL Albumin (3.2-5.5) g/dL Globulin (2.1-4.2) g/dL Albumin/Globulin Ratio (1.0-2.2) Triglycerides 45 mg/dL Cholesterol 84 ( - 200) mg/dL LDL Cholesterol, Calc 49 ( - 129) mg/dL VLDL Cholesterol 9 mg/dL HDL Cholesterol 26 L (60 - ) mg/dL LDL/HDL Ratio 1.9 (<3.6) Cholesterol/HDL Ratio 3.2 (<5.0) Procalcitonin Immunoas 0.16 (<0.5) ng/mL TSH 4.60 (0.34-5.60) uIU/mL 03/13/24 Range/Units 21:06 WBC 17.8 H (4.8-10.8) x10^3/uL RBC 4.53 L (4.70-6.10) 10^6/uL Hgb 12.6 L (14.0-18.0) g/dL Hct 39.3 L (42.0-52.0) % MCV 86.8 (80.0-94.0) fL MCH 27.8 (27.0-31.0) pg MCHC 32.1 (32.0-36.0) g/dL RDW 15.1 H (12.0-15.0) % Plt Count 305 (130-450) 10^3/uL MPV 10.4 (7.4-11.4) fL Neut # (Auto) 15.0 H (1.5-6.6) 10^3/uL Lymph # (Auto) 1.1 L (1.5-3.5) 10^3/uL Russell # (Auto) 1.5 H (0.0-1.0) 10^3/uL Eos # (Auto) 0.1 (0.0-0.7) 10^3/uL Baso # (Auto) 0.0 (0.0-0.1) 10^3/uL Absolute Nucleated RBC 0.00 x10^3/uL Nucleated RBC % 0.0 /100WBC Sodium 136 (135-145) mmol/L Potassium 4.4 (3.5-4.5) mmol/L Chloride 104 (101-111) mmol/L Carbon Dioxide 22 (21-32) mmol/L Anion Gap 10.0 (6-13) BUN 38 H (6-20) mg/dL Creatinine 1.1 (0.6-1.3) mg/dL Estimated GFR (MDRD) 67 L (>89) Glucose 103 (74-104) mg/dL Estimat Average Glucose (70-100) mg/dL Hemoglobin A1c % (4.27-6.07) % Calcium 8.5 (8.5-10.3) mg/dL Total Bilirubin 0.7 (0.2-1.0) mg/dL AST 17 (10-42) IU/L ALT 33 (10-60) IU/L Alkaline Phosphatase 75 (42-121) IU/L Troponin I High Sens 152.3 H* (2.3-19.7) ng/L B-Natriuretic Peptide 5320 H (5-100) pg/mL Total Protein 7.8 (6.4-8.9) g/dL Albumin 3.3 (3.2-5.5) g/dL Globulin 4.5 H (2.1-4.2) g/dL Albumin/Globulin Ratio 0.7 L (1.0-2.2) Triglycerides mg/dL Cholesterol ( - 200) mg/dL LDL Cholesterol, Calc ( - 129) mg/dL VLDL Cholesterol mg/dL HDL Cholesterol (60 - ) mg/dL LDL/HDL Ratio (<3.6) Cholesterol/HDL Ratio (<5.0) Procalcitonin Immunoas (<0.5) ng/mL TSH (0.34-5.60) uIU/mL Diagnostic Imaging Diagnostic Imaging Results: positive Final report reviewed Assessment/Plan Problem List (1) Acute hypoxic respiratory failure: Impression: Patient and his went on a cruise, returned January 02. He has had progressive shortness of breath since. Worse when lying flat, worse with exertion. Occasional chest pain, but none right now. No history of pulmonary or heart issues in the past. No fevers or chills. proBNP elevated to 3000. Chest x-ray shows diffuse pulmonary infiltrates, cardiomegaly. Last echo was this time, it showed EF of 55 to 60% indeterminate diastolic function, mild aortic stenosis. ECHO repeated at last admission a week ago shows EF of 40-45%, severe aortic stenosis. CTA shows moderate diffuse lung disease with mostly groundglass opacities and small consolidative components, likely edema. Procalcitonin ordered at last visit to see if there is an underlying infectious process also occurring - negative. Leukocytosis stable. Afebrile. No cough. Continue to hold off on antibiotics. Plan on speaking with cardiology group that patient was supposed to follow up with outpatient - likely will require transfer to facility with cardiology ([facility]). (2) Pulmonary edema: Impression: Patient has diffuse infiltrates. Continue IV Lasix 40 mg twice daily as stated above. Continue to wean down oxygen. Continue to monitor strict ins and outs. Qualifiers: Chronicity: acute Qualified Code(s): J81.0 - Acute pulmonary edema (3) Elevated troponin: Impression: Downtrending. Likely due to longstanding myocardial injury in setting of likely new onset CHF for the past two months. Patient with no active chest pain at this time. EKG shows a right bundle carlos block. There are no obvious ST elevations or depressions or any reciprocal changes. (4) Leukocytosis: Impression: Procalcitonin ordered to see if there is an underlying infectious process also occurring - negative. Leukocytosis stanle. Afebrile overnight. No cough. Continue to hold off on antibiotics. Qualifiers: Leukocytosis type: unspecified Qualified Code(s): D72.829 - Elevated white blood cell count, unspecified (5) Acute kidney injury: Impression: Creatinine elevated last admission; stable now after Lasix. Possibly component of cardiorenal syndrome with this is new onset congestive heart failure. Continue 40 mg Lasix IV twice daily. Continue to trend creatinine. (6) Hypertension: Impression: Hold antihypertensives at this time as patient is borderline low blood pressure. Qualifiers: Hypertension type: unspecified Qualified Code(s): I10 - Essential (primary) hypertension
[2024-03-14] MEDS ORDERED: LACTATED RINGERS 250 ML IV ONE (15:50)
[2024-03-14] MEDS: LACTATED RINGERS 1,000 ML IV ONE (16:29)
--- NOTE | 2024-03-14 17:16 | Discharge Summary ---
Discharge Summary Admit Date: 03/13/24 Discharge Date: 03/14/24 Discharging Provider: Dr. Martin Rizo Primary Care Provider: Albert Burgess Code Status: Attempt Resuscitation Discharge Facility Name: [facility] DIAGNOSES Admission Diagnoses: Toxic respiratory failure Heart failure with reduced ejection fraction exacerbation Severe arctic stenosis Bilateral pulm opacities on chest x-ray NSTEMI, likely type II in setting of CHF exacerbation Hypertension Depression Discharge Diagnoses with Status of Each Condition: Acute hypoxic respiratory failurepatient still requiring about 4 L to maintain saturations of 92%. Likely due to heart failure exacerbation, in setting of severe aortic stenosis. May be going into cardiogenic shock with worsening hypotension. Plan to transfer to [facility] for closer monitoring in the ICU with cardiology on consult. Pulmonary edemadue to above. Elevated troponinlikely due to repeated heart strain in setting of heart failure exacerbation. No active chest pain at this time. EKG shows right bundle carlos block, no obvious ST elevations or depressions with reciprocal changes. Leukocytosislikely reactive to above. Last time, procalcitonin was negative. We watched off antibiotics. No cough, no fevers, no chills. Acute kidney injurypatient's creatinine stable around 1.2. Hypertensionhold antihypertensive at this time as patient is borderline low. HPI History of Present Illness: Per Dr. Goodrich: Mr Cruz is a 68-year-old male with a history of hypertension and recently diagnosed HFrEF, admitted to hospital last week 03/04-03/07 for CHFe exacerbation, troponin elevation (trend flat ~160) and found to have severe . Discharged on maintenance diuretic lasix 20 mg daily with plan for outpatient cardiology referral for further evaluation. "Echocardiogram 03/06: Moderate concentric left ventricular hypertrophy. Left ventricular systolic ejection fraction is mild to moderately impaired with an ejection fraction of 40 to 45%. Right ventricular systolic function is normal. Severe aortic stenosis with a peak mean pressure gradient of 74 mmHg / 52 mmHg. The aortic valve area by continuity equation is 0.94 cm. There is moderate aortic regurgitation." He presents to the ER today with complaints of shortness of breath, found to be hypoxic and currently on 4 L NC, he does not use home O2. Patient reports he felt fine after leaving the hospital last week, progressively worse since yesterday and today more short of breath and returned to the ER. He denies any chest pain, has had some mild R shoulder pain, comes and goes. Denies abdominal pain, nausea, vomiting, fevers or chills. He has had a dry cough for the past few weeks, unchanged. He reports compliance with home medications including antihypertensives and lasix as prescribed. He did follow up with PCP and obtained cardiology referral - appointment not scheduled yet. Currently he is feeling much better since receiving IV diuretic in ER. CONSULTS | PROCEDURES Consultations: Cardiology (Jairon Webb) Procedures: Chest x-ray HOSPITAL COURSE Hospital Course: Patient is a 68-year-old male with a recent diagnosis of heart failure with reduced ejection fraction, aortic stenosis who presented with dyspnea. Of note, he was here last week, when he was diagnosed with this. He was discharged on oral Lasix 20 mg daily. He was taking this at home, however, he came in with worsening dyspnea. He required 6 to 7 L of oxygen. We did start diuresis with IV Lasix 40 mg twice daily. However, with his blood pressure continuing to drop, and the underlying issue not being resolved, plan was to transfer him to [facility] for evaluation by assistant professor of forestry. I did speak with cardiology, and they are agreeable to transfer to an intensive care unit. Spoke with and patient, both agreeable to plan for transfer. ALLERGIES Allergies Allergy/AdvReac Type Severity Reaction Status Date / Time CHUY Inhibitors Allergy Unknown Verified 03/13/24 20:41 sulfite Allergy Rash Verified 03/13/24 20:41 MEDICATIONS Ambulatory Orders Medication Instructions Recorded Confirmed amlodipine 10 mg tablet 10 mg PO DAILY 03/05/24 03/13/24 bisoprolol 5 1 tab PO DAILY 03/05/24 03/13/24 mg-hydrochlorothiazide 6.25 mg tablet fluoxetine 20 mg capsule 20 mg PO DAILY 03/05/24 03/13/24 furosemide 40 mg tablet (Lasix) 40 mg PO DAILY #30 tabs 03/07/24 03/13/24 potassium chloride 20 mEq 20 meq PO DAILY #30 tabs 03/07/24 03/13/24 tablet,extended release (K-Tab) PHYSICAL EXAM AT DISCHARGE General Appearance: positive Mild distress Eyes Bilateral: positive Normal inspection, PERRL and EOMI ENT: positive ENT inspection nml, Pharynx nml and No signs of dehydration Neck: positive Nml inspection, Thyroid nml and No JVD Respiratory: positive Chest non-tender, Breath sounds nml and Rales Cardiovascular: positive Regular rate & rhythm, No murmur and No gallop; negative Tachycardia, Bradycardia or Systolic murmur Peripheral Pulses: positive 2+ Abdomen: positive Non-tender; negative Rebound, Hepatomegaly, Splenomegaly or Mass Skin: positive Color nml, No rash and Warm Extremities: positive Non-tender and Pedal edema (trace edema) Neurologic/Psychiatric: positive Oriented x3, Motor nml and Mood/affect nml LABS 03/14/24 05:13 03/14/24 05:13 DIAGNOSTIC IMAGING Diagnostic Imaging Results: Final report reviewed QUALITY (Female Hip Fx Only) Was patient sent home on osteoporosis medication?: No FOLLOW UP Follow Up: Transfer to [facility]. TIME SPENT Time Spent in Discharge (Minutes): 40 Discharge Plan Discharge Patient Disposition: 02 Transfer Acute Care Hosp Condition: Serious Prescriptions: Continued fluoxetine 20 mg capsule 20 mg PO DAILY furosemide [Lasix] 40 mg tablet 40 mg PO DAILY Qty: 30 2RF potassium chloride [K-Tab] 20 mEq tablet extended release 20 meq PO DAILY Qty: 30 2RF Discontinued amlodipine 10 mg tablet 10 mg PO DAILY Patient Comments: TAKE ONE TABLET BY MOUTH EVERY DAY bisoprolol-hydrochlorothiazide 5-6.25 mg tablet 1 tab PO DAILY Activity Restrictions: Activity as Tolerated Diet: Cardiac Health Concerns: You came in because you are having shortness of breath. When you were last here, you were diagnosed with severe aortic stenosis, or narrowing of your aortic valve. This has resulted in heart failure. This is why there is fluid building up in your lungs. We did give you some doses of an IV water pill which helped your breathing a little bit. However, your blood pressure is a little bit on the low side, and we have not addressed the underlying cause. We talked about how it would be important for you to go to a facility with a assistant professor of forestry or heart doctor. The heart doctor you were referred to by your primary care doctor is the same one you will see when you are in the hospital, or someone from their group. We hope you continue to feel better. Print Language: Greenlandic Patient Instructions: Heart Failure Diet Changes, Heart Failure Dc Stand Alone Forms: PCP List
[2024-03-14 18:28] VITALS: BP 92/54; TEMP 97.5; O2SAT 92
== END 2024-03-14 18:45 | disposition short-term general hospital (02) | DRG 189 ==
LOC: ED 20:39 → MS2 23:21
PROVIDERS: ADMIT Student in an Organized Health Care Education/Training Program; ATTEND Student in an Organized Health Care Education/Training Program
DX: Z79.899 Other long term (current) drug therapy; I50.23 Acute on chronic systolic (congestive) heart failure; I45.10 Unspecified right bundle-branch block; R79.89 Other specified abnormal findings of blood chemistry; Z87.891 Personal history of nicotine dependence; J96.01 Acute respiratory failure with hypoxia; D72.829 Elevated white blood cell count, unspecified; M25.511 Pain in right shoulder; R94.31 Abnormal electrocardiogram [ECG] [EKG]; I21.4 Non-ST elevation (NSTEMI) myocardial infarction; I11.0 Hypertensive heart disease with heart failure; I35.0 Nonrheumatic aortic (valve) stenosis; N17.9 Acute kidney failure, unspecified; I95.9 Hypotension, unspecified; F32.A Depression, unspecified; J81.0 Acute pulmonary edema